=== PATIENT | male | born 1930 | race Caucasian/White ===

== ENCOUNTER 2021-08-05 16:06 | Inpatient (IN) | payer MEDICARE ==
[2021-08-05] MEDS ORDERED: LIDOCAINE-PRILOCAINE 2.5-2.5% CREAM 5 GM TUBE TOPICAL ONE (18:59)
[2021-08-05] MEDS ORDERED: VANCOMYCIN IV PER PHARMACY 1 EACH MISC MISCELLANE PRN (19:13)
[2021-08-05] MEDS ORDERED: LEVOFLOXACIN 500MG-D5W PMX 500 MG in DEXTROSE/WATER 1 100ML.BAG IVPB STA (19:14)
[2021-08-05] MEDS ORDERED: NALOXONE 0.4 MG/ML 1 ML VIAL IV PRN (19:24)
--- NOTE | 2021-08-05 19:24 | ED ---
General Adult HPI - General Chief complaint: Urogenital Stated complaint: Poss infection in colon-sent by PCP Time Seen by Provider: 08/05/21 18:26 Source: patient, RN notes reviewed, old records reviewed Mode of arrival: wheelchair Limitations: no limitations - History of Present Illness Initial comments: 89-year-old male presenting for evaluation patient's had been sent in by his urologist for positive blood culture and positive urine culture. Patient is currently being treated for prostatitis. He's been on Cipro but has not been improving. He's had poor appetite. He's had weight loss increased generalized weakness. He does not report a fever. He had blood cultures obtained at outside hospital which were positive for gram positive cocci and urine culture which was positive for E. coli. The sensitivities were not available. - Related Data Allergies Allergy/AdvReac Type Severity Reaction Status Date / Time Sulfa (Sulfonamide AdvReac Rash/Hives Verified 08/05/21 16:31 Antibiotics) Review of Systems ROS Statement: Those systems with pertinent positive or pertinent negative responses have been documented in the HPI. ROS Other: All systems not noted in ROS Statement are negative. Past Medical History Past Medical History: Diabetes Mellitus, Hyperlipidemia, Hypertension History of Any Multi-Drug Resistant Organisms: None Reported Past Psychological History: No Psychological Hx Reported Smoking Status: Never smoker Past Alcohol Use History: None Reported Past Drug Use History: None Reported General Exam Limitations: no limitations General appearance: alert, in no apparent distress Head exam: Present: atraumatic, normocephalic Eye exam: Present: normal appearance, PERRL ENT exam: Present: normal exam Neck exam: Present: normal inspection. Absent: meningismus Respiratory exam: Present: normal lung sounds bilaterally. Absent: respiratory distress, wheezes Cardiovascular Exam: Present: regular rate, normal rhythm GI/Abdominal exam: Present: soft, distended. Absent: tenderness Extremities exam: Present: normal inspection, normal capillary refill Neurological exam: Present: alert, oriented X3, CN II-XII intact. Absent: motor sensory deficit Psychiatric exam: Present: normal affect, normal mood Skin exam: Present: warm, dry, intact. Absent: cyanosis, diaphoretic Course Vital Signs 08/05/21 16:31 Temperature 98.9 F Pulse Rate 76 Respiratory 16 Rate Blood Pressure 108/64 O2 Sat by Pulse 96 Oximetry Medical Decision Making - Medical Decision Making 82-year-old male with positive blood culture, positive urine culture, failing outpatient treatment for UTI and prostatitis. Cultures and urine culture will be repeated. Patient will be started on vancomycin to cover the gram-positive organisms in his blood and Levaquin for treatment of prostatitis and E. coli in the urine. Laboratory studies will be obtained these results are pending. The patient will be admitted to internal medicine at the request of his urologist Dr. Tyson. Disposition Clinical Impression: Prostatitis, Positive blood culture Disposition: ADMITTED IP TO THIS HOSP Condition: Stable Is patient prescribed a controlled substance at d/c from ED?: No Referrals: Nonstaff,Physician [Primary Care Provider] - 1-2 days Time of Disposition: 19:24
[2021-08-05 20:03] LABS: Basophils % (A) 0 %; Eosinophils # (A) 0.1 k/uL (0-0.7); Eosinophils % (A) 1 %; HCT 47.1 % (39.0-53.0); HGB 15.1 gm/dL (13.0-17.5); Lymphocytes % (A) 9 %; MCH 31.1 pg (25.0-35.0); MCV 97.3 fL (80.0-100.0); Mean Platelet Volume 7.1; Monocytes # (A) 0.6 k/uL (0-1.0); Monocytes % (A) 5 %; Neutrophils # (A) 10.1 k/uL (1.3-7.7); Neutrophils % (A) 83 %; Platelet Count 240 k/uL (150-450); RBC 4.84 m/uL (4.30-5.90); RDW 13.6 % (11.5-15.5); WBC 12.1 k/uL (3.8-10.6)
[2021-08-05 20:14] LABS: Albumin 3.4 g/dL (3.5-5.0); Calcium 8.9 mg/dL (8.4-10.2); Potassium 4.2 mmol/L (3.5-5.1); Total Bilirubin 0.6 mg/dL (0.2-1.3); Total Protein 6.4 g/dL (6.3-8.2)
[2021-08-05] MEDS: SODIUM CHLORIDE 0.9% 1,000 ML IV SCH (20:29)
[2021-08-05 20:39] LABS: Appearance,Urine Turbid (Clear); Bacteria,Urine Many /hpf; Bilirubin,Urine Negative (Negative); Blood,Urine Small (Negative); Color,Urine Yellow; Glucose,Urine (UA) Trace (Negative); Ketones,Urine Negative (Negative); Leukocyte Esterase,Urine Large (Negative); Nitrite,Urine Positive (Negative); PH, Urine 5.5 (5.0-8.0); Protein,Urine 1+ (Negative); RBC,Urine 18 /hpf (0-5); Specific Gravity,Urine 1.018 (1.001-1.035); Squamous Epithelial Cell,Urine 3 /hpf (0-4); Urobilinogen,Urine <2.0 mg/dL (<2.0); WBC,Urine >182 /hpf (0-5)
[2021-08-05] MEDS ORDERED: VANCOMYCIN 2,000 MG in SODIUM CHLORIDE 0.9% 500 ML 500 ML IVPB ONE ×2 (21:00→23:00)
[2021-08-05] MEDS ORDERED: LEVOFLOXACIN 500MG-D5W PMX 500 MG in DEXTROSE/WATER 1 100ML.BAG IVPB ONE (23:00)
[2021-08-06] MEDS ORDERED: MELATONIN 5 MG TABLET PO ONE (00:45)
[2021-08-06] MEDS: ACETAMINOPHEN TAB 325 MG TAB PO PRN ×3 (00:52→22:38)
--- NOTE | 2021-08-06 03:27 | P.HPIM ---
History of Present Illness H&P Date: 08/05/21 Patient is a 89-year-old male with a PMH of type II DM, hyper lipidemia, hypertension, BPH, who was sent to the emergency room by his urologist (Dr. Kaden Tyson) for positive blood and urine cultures. The patient reports that he is currently undergoing treatment for prostatitis for the past several days, and has been receiving ciprofloxacin. He reports however that his symptoms have not improved despite antibiotics, and he was informed that the blood cultures he had performed from another facility were positive. Reportedly, the blood cultures were positive for gram-positive cocci with urine culture positive for E. coli. No sensitivities were available for review. The patient reports on going dysuria with urinary frequency and urgency and urine significantly darker than usual. He also reports subjective chills. Denied chest discomfort, nausea, vomiting, abdominal pain. Laboratory evaluation in the emergency room revealed dullness count of 12.1, UN 47, creatinine 2.34 (no baseline available for comparison), and grossly abnormal UA. Review of systems: Pertinent positives and negatives as discussed in HPI, a complete review of systems was performed and all other systems are negative. Physical examination: General: non toxic, no distress, appears at stated age, elderly obese Derm: no unusual rashes/lesions no unusual ecchymoses, warm, dry Head: atraumatic, normocephalic, symmetric Eyes: EOMI, no lid lag, anicteric sclera, pupils equal round reactive to light ENT: Nose and ears atraumatic, no thrush, no pharyngeal erythema Neck: No thyromegaly, no cervical lymphadenopathy, trachea midline, supple Mouth: no lip lesion, mucus membranes moist Cardiovascular: S1S2 reg, no murmur, positive posterior tibial pulse bilateral, no edema, capillary refill less than 2 seconds Lungs: CTA bilateral, no rhonchi, no rales , no accessory muscle use Abdominal: soft, obese, nontender to palpation, no guarding, no appreciable organomegaly, normal bowel sounds Ext: no gross muscle atrophy, muscle strength 5 out of 5 in all 4 extremities grossly, no contractures, Neuro: CN II-XI grossly intact, light touch intact all 4 extremities, finger to nose within normal limits, Psych: Alert, oriented, appropriate affect Assessment/plan Prostatitis, failed outpatient treatment -Patient received Levaquin in the emergency room. The patient however has not responded to ciprofloxacin as an outpatient -Start ceftriaxone -Urology consulted Gram-positive cocci in blood cultures -Continue with empiric vancomycin for now Kidney injury, acute versus chronic -Monitor for now Chronic conditions: Type II DM, hyperlipidemia, hypertension -Insulin sliding scale with blood glucose monitoring DVT prophylaxis -Heparin subq The patient is admitted with an anticipated greater than 2 midnight stay for evaluation of prostatitis CODE STATUS: Full Code Discussed with: Patient Anticipated discharge date: 08/[address]: Home Past Medical History Past Medical History: Diabetes Mellitus, Hyperlipidemia, Hypertension Additional Past Medical History / Comment(s): Type 2 diabetes History of Any Multi-Drug Resistant Organisms: None Reported Additional Past Surgical History / Comment(s): "20 years ago 20 inches of colon removed due to polyps" Past Psychological History: No Psychological Hx Reported Smoking Status: Never smoker Past Alcohol Use History: None Reported Past Drug Use History: None Reported - Past Family History Father Additional Family Medical History / Comment(s): from "heart problem" Medications and Allergies Home Medications Medication Instructions Recorded Confirmed Type Ciprofloxacin HCl 500 mg PO BID 08/05/21 08/05/21 History Furosemide [Lasix] 40 mg PO DAILY 08/05/21 08/05/21 History Ibuprofen 600 mg PO Q6H PRN 08/05/21 08/05/21 History Losartan [Cozaar] 25 mg PO DAILY 08/05/21 08/05/21 History Metoprolol Succinate (ER) [Toprol 50 mg PO DAILY 08/05/21 08/05/21 History Xl] Simvastatin [Zocor] 20 mg PO DAILY 08/05/21 08/05/21 History glipiZIDE [Glucotrol] 10 mg PO BID 08/05/21 08/05/21 History metFORMIN HCL [Glucophage] 500 mg PO BID 08/05/21 08/05/21 History Allergies Allergy/AdvReac Type Severity Reaction Status Date / Time Sulfa (Sulfonamide AdvReac Rash/Hives Verified 08/05/21 20:10 Antibiotics) Physical Exam Vitals: Vital Signs Temp Pulse Pulse Resp BP BP Pulse Ox 08/05/21 21:47 97.8 F 75 18 149/77 97 08/05/21 20:36 97.6 F 74 16 115/74 97 08/05/21 16:31 98.9 F 76 16 108/64 96 Intake and Output 08/05/21 08/05/21 08/06/21 14:59 22:59 06:59 Other: Voiding Method Toilet Weight 104.78 kg Results CBC & Chem 7: 08/05/21 19:45 08/05/21 19:45 Labs: Abnormal Lab Results - Last 24 Hours (Table) 08/05/21 08/05/21 08/05/21 Range/Units 19:45 19:45 20:19 WBC 12.1 H (3.8-10.6) k/uL Neutrophils # 10.1 H (1.3-7.7) k/uL Sodium 136 L (137-145) mmol/L BUN 47 H (9-20) mg/dL Creatinine 2.34 H (0.66-1.25) mg/dL Glucose 154 H (74-99) mg/dL Albumin 3.4 L (3.5-5.0) g/dL Urine Protein 1+ H (Negative) Urine Glucose (UA) Trace H (Negative) Urine Blood Small H (Negative) Ur Leukocyte Esterase Large H (Negative) Urine RBC 18 H (0-5) /hpf Urine WBC >182 H (0-5) /hpf Urine WBC Clumps Many H (None) /hpf Urine Bacteria Many H (None) /hpf Thrombosis Risk Factor Assmnt - Choose All That Apply Each Factor Represents 1 point: Obesity (BMI >25) Each Risk Factor Represents 3 Points: Age 75 years or older Thrombosis Risk Factor Assessment Total Risk Factor Score: 4 Thrombosis Risk Factor Assessment Level: Moderate Risk
[2021-08-06] MEDS: SODIUM CHLORIDE 0.9% 1,000 ML IV SCH ×3 (04:38→16:58)
[2021-08-06 07:16] LABS: Glucose,Whole Blood 202 mg/dL (75-99)
[2021-08-06 08:03] LABS: African American GFR (CKD) 34 (>60 ml/min/1.73 sqM); Anion Gap 9 mmol/L; Blood Urea Nitrogen 44 mg/dL (9-20); Calcium 8.5 mg/dL (8.4-10.2); Carbon Dioxide 23 mmol/L (22-30); Chloride 104 mmol/L (98-107); Glucose 235 mg/dL (74-99); Non-African American GFR(CKD) 30 (>60 ml/min/1.73 sqM); Potassium 4.7 mmol/L (3.5-5.1); Sodium 136 mmol/L (137-145)
[2021-08-06] MEDS: METOPROLOL SUCCINATE (ER) 50 MG TAB.ER.24H PO SCH (08:06)
[2021-08-06] MEDS: HEPARIN SODIUM,PORCINE/PF 5,000 UNIT/0.5 ML SYRINGE SQ SCH ×3 (08:06→22:36)
[2021-08-06] MEDS: INSULIN ASPART (NovoLOG) 100 UNIT/ML VIAL SQ SCH ×5 (08:06→20:41)
[2021-08-06] MEDS: ATORVASTATIN 10 MG TAB PO SCH (08:06)
[2021-08-06] MEDS: FUROSEMIDE 40 MG TAB PO SCH (08:06)
--- NOTE | 2021-08-06 08:07 | P.GSCN ---
History of Present Illness Consult date: 08/06/21 Reason for Consult: UTI History of present illness: Patient is an 89-year-old male with multiple comorbidities. He is patient of Dr Tyson He was placed on Cipro for prostatitis, But his gram-positive cocci with urine culture positive for E. coli. He reports no improvement of his symptoms with PO antibiotics. He indicated that he was having dysuria, frequency and suprapubic pain. denies any fevers or chills or flank pain.he was admitted to the hospital overnight, and was started on vancomycin and Levaquin. Indicated improvement following one dose of antibiotics. he is refusing IV fluids and antibiotics, indicates its causing severe warm sensation in hi body. Review of Systems - Constitutional Denies fever, Denies weight loss - EENT Ears, nose, mouth and throat: Denies dysphagia - Cardiovascular Denies chest pain, Denies shortness of breath - Respiratory Denies cough, Denies 7 - Genitourinary Reports dysuria, Reports urinary frequency, Denies flank pain - Integumentary Denies rash, Denies unusual bruising - Neurological Denies headaches, Denies syncope Past Medical History Past Medical History: Diabetes Mellitus, Hyperlipidemia, Hypertension Additional Past Medical History / Comment(s): Type 2 diabetes History of Any Multi-Drug Resistant Organisms: None Reported Additional Past Surgical History / Comment(s): "20 years ago 20 inches of colon removed due to polyps" Past Psychological History: No Psychological Hx Reported Smoking Status: Never smoker Past Alcohol Use History: None Reported Past Drug Use History: None Reported - Past Family History Father Additional Family Medical History / Comment(s): from "heart problem" Medications and Allergies Home Medications Medication Instructions Recorded Confirmed Type Ciprofloxacin HCl 500 mg PO BID 08/05/21 08/05/21 History Furosemide [Lasix] 40 mg PO DAILY 08/05/21 08/05/21 History Ibuprofen 600 mg PO Q6H PRN 08/05/21 08/05/21 History Losartan [Cozaar] 25 mg PO DAILY 08/05/21 08/05/21 History Metoprolol Succinate (ER) [Toprol 50 mg PO DAILY 08/05/21 08/05/21 History Xl] Simvastatin [Zocor] 20 mg PO DAILY 08/05/21 08/05/21 History glipiZIDE [Glucotrol] 10 mg PO BID 08/05/21 08/05/21 History metFORMIN HCL [Glucophage] 500 mg PO BID 08/05/21 08/05/21 History Allergies Allergy/AdvReac Type Severity Reaction Status Date / Time Sulfa (Sulfonamide AdvReac Rash/Hives Verified 08/05/21 20:10 Antibiotics) Surgical - Exam Vital Signs Temp Pulse Resp BP Pulse Ox 98.9 F 76 16 108/64 96 08/05/21 16:31 08/05/21 16:31 08/05/21 16:31 08/05/21 16:31 08/05/21 16:31 - General no distress, no pain - Eyes normal ocular movement, no pale - ENT normal nares, normal mucosa - Respiratory normal expansion, normal respiratory effort - Abdomen Abdomen: soft, non tender, no distended - Psychiatric oriented to time, oriented to person, oriented to place Results - Labs 08/05/21 19:45 08/05/21 19:45 Abnormal Lab Results - Last 24 Hours (Table) 08/05/21 08/05/21 08/05/21 Range/Units 19:45 19:45 20:19 WBC 12.1 H (3.8-10.6) k/uL Neutrophils # 10.1 H (1.3-7.7) k/uL Sodium 136 L (137-145) mmol/L BUN 47 H (9-20) mg/dL Creatinine 2.34 H (0.66-1.25) mg/dL Glucose 154 H (74-99) mg/dL POC Glucose (mg/dL) (75-99) mg/dL Albumin 3.4 L (3.5-5.0) g/dL Urine Protein 1+ H (Negative) Urine Glucose (UA) Trace H (Negative) Urine Blood Small H (Negative) Ur Leukocyte Esterase Large H (Negative) Urine RBC 18 H (0-5) /hpf Urine WBC >182 H (0-5) /hpf Urine WBC Clumps Many H (None) /hpf Urine Bacteria Many H (None) /hpf 08/06/21 Range/Units 07:15 WBC (3.8-10.6) k/uL Neutrophils # (1.3-7.7) k/uL Sodium (137-145) mmol/L BUN (9-20) mg/dL Creatinine (0.66-1.25) mg/dL Glucose (74-99) mg/dL POC Glucose (mg/dL) 202 H (75-99) mg/dL Albumin (3.5-5.0) g/dL Urine Protein (Negative) Urine Glucose (UA) (Negative) Urine Blood (Negative) Ur Leukocyte Esterase (Negative) Urine RBC (0-5) /hpf Urine WBC (0-5) /hpf Urine WBC Clumps (None) /hpf Urine Bacteria (None) /hpf Diabetes panel 08/05/21 Range/Units 19:45 Sodium 136 L (137-145) mmol/L Potassium 4.2 (3.5-5.1) mmol/L Chloride 101 (98-107) mmol/L Carbon Dioxide 25 (22-30) mmol/L BUN 47 H (9-20) mg/dL Creatinine 2.34 H (0.66-1.25) mg/dL Glucose 154 H (74-99) mg/dL Calcium 8.9 (8.4-10.2) mg/dL AST 24 (17-59) U/L ALT 16 (4-49) U/L Alkaline Phosphatase 83 (38-126) U/L Total Protein 6.4 (6.3-8.2) g/dL Albumin 3.4 L (3.5-5.0) g/dL Calcium panel 08/05/21 Range/Units 19:45 Calcium 8.9 (8.4-10.2) mg/dL Albumin 3.4 L (3.5-5.0) g/dL Pituitary panel 08/05/21 Range/Units 19:45 Sodium 136 L (137-145) mmol/L Potassium 4.2 (3.5-5.1) mmol/L Chloride 101 (98-107) mmol/L Carbon Dioxide 25 (22-30) mmol/L BUN 47 H (9-20) mg/dL Creatinine 2.34 H (0.66-1.25) mg/dL Glucose 154 H (74-99) mg/dL Calcium 8.9 (8.4-10.2) mg/dL Adrenal panel 08/05/21 Range/Units 19:45 Sodium 136 L (137-145) mmol/L Potassium 4.2 (3.5-5.1) mmol/L Chloride 101 (98-107) mmol/L Carbon Dioxide 25 (22-30) mmol/L BUN 47 H (9-20) mg/dL Creatinine 2.34 H (0.66-1.25) mg/dL Glucose 154 H (74-99) mg/dL Calcium 8.9 (8.4-10.2) mg/dL Total Bilirubin 0.6 (0.2-1.3) mg/dL AST 24 (17-59) U/L ALT 16 (4-49) U/L Alkaline Phosphatase 83 (38-126) U/L Total Protein 6.4 (6.3-8.2) g/dL Albumin 3.4 L (3.5-5.0) g/dL Assessment and Plan Assessment: this is an 89-year-old male with prostatitis and bacteremia failed outpatient by mouth antibiotics. He has been having persistent symptoms with Cipro. He is admitted to the hospital given to his bacteremia and failure of by mouth antibiotics as an outpatient. He was started on Levaquin and vancomycin in the ER, has noticed improvement this morning. He is refusing any further IV medications, including antibiotics for a prolonged discussion with him given that he failed by mouth antibiotics need to continue IV medications until cultures are finalized. Continued to refuse, indicated he was not comfortable with a feeling he was having with the medications. Discussed with him potential of progression of his infection, and progression to sepsis and even loss of life with a improperly treatment of UTI. At this point he indicated he continues to refuse but we'll consider later today. -Consult For ID given his bactremia -F/U on Urine and blood culture -Continue IV abx when patient is agreeable
[2021-08-06 11:43] LABS: Glucose,Whole Blood 262 mg/dL (75-99)
--- NOTE | 2021-08-06 13:12 | P.PN ---
Subjective Progress Note Date: 08/06/21 Principal diagnosis: Pelvic discomfort Patient was seen and examined. No acute events overnight. Patient describes pelvic discomfort which he relates to prostatitis. Hasn't had a bowel movement in a few days. No dysuria. No nausea or vomiting. No fever or chills. Objective - Vital Signs Vital signs: Vital Signs Temp 97.6 F 08/06/21 07:36 Pulse 83 08/06/21 07:36 Resp 17 08/06/21 07:36 BP 95/57 08/06/21 07:36 Pulse Ox 95 08/06/21 07:36 Intake & Output 08/05/21 08/06/21 08/06/21 18:59 06:59 18:59 Intake Total 900 Output Total 500 Balance 400 Weight 104.78 kg 104.78 kg Intake: Intake, IV Titration 600 Amount Levofloxacin 500Mg-D5w 100 Pmx 500 mg In Dextrose/ Water 1 100ml.bag @ 100 mls/hr IVPB ONCE ONE Rx#: [id number] Vancomycin 2,000 mg In 500 Sodium Chloride 0.9% 500 ml 500 ml @ 167 mls/hr IVPB ONCE ONE Rx#: [id number] Oral 300 Output: Urine 500 Other: Voiding Method Urinal Urinal # Voids 6 - Exam General: [non toxic], [no distress], [appears at stated age] Derm: [warm], [dry] Head: [atraumatic], [normocephalic], [symmetric] Eyes: [EOMI], [no lid lag], [anicteric sclera] Mouth: [no lip lesion], [mucus membranes moist] Cardiovascular: [S1S2 reg], [no murmur] Lungs: [CTA bilateral], [no rhonchi, no rales] , [no accessory muscle use] Abdominal: [soft], [ nontender to palpation], [no guarding], [no appreciable organomegaly] Ext: [no gross muscle atrophy], [no edema], [no contractures] Neuro: [no focal neuro deficits] Psych: [Alert], [oriented], [appropriate affect] - Labs CBC & Chem 7: 08/05/21 19:45 08/06/21 07:27 Labs: Abnormal Lab Results - Last 24 Hours (Table) 08/05/21 08/05/21 08/05/21 Range/Units 19:45 19:45 20:19 WBC 12.1 H (3.8-10.6) k/uL Neutrophils # 10.1 H (1.3-7.7) k/uL Sodium 136 L (137-145) mmol/L BUN 47 H (9-20) mg/dL Creatinine 2.34 H (0.66-1.25) mg/dL Glucose 154 H (74-99) mg/dL POC Glucose (mg/dL) (75-99) mg/dL Albumin 3.4 L (3.5-5.0) g/dL Urine Protein 1+ H (Negative) Urine Glucose (UA) Trace H (Negative) Urine Blood Small H (Negative) Ur Leukocyte Esterase Large H (Negative) Urine RBC 18 H (0-5) /hpf Urine WBC >182 H (0-5) /hpf Urine WBC Clumps Many H (None) /hpf Urine Bacteria Many H (None) /hpf 08/06/21 08/06/21 08/06/21 Range/Units 07:15 07:27 11:42 WBC (3.8-10.6) k/uL Neutrophils # (1.3-7.7) k/uL Sodium 136 L (137-145) mmol/L BUN 44 H (9-20) mg/dL Creatinine 1.96 H (0.66-1.25) mg/dL Glucose 235 H (74-99) mg/dL POC Glucose (mg/dL) 202 H 262 H (75-99) mg/dL Albumin (3.5-5.0) g/dL Urine Protein (Negative) Urine Glucose (UA) (Negative) Urine Blood (Negative) Ur Leukocyte Esterase (Negative) Urine RBC (0-5) /hpf Urine WBC (0-5) /hpf Urine WBC Clumps (None) /hpf Urine Bacteria (None) /hpf Assessment and Plan Assessment: Prostatitis, failed outpatient treatment Leukocytosis -Patient received Levaquin in the emergency room. The patient however has not responded to ciprofloxacin as an outpatient -UA with reflex to culture ordered -Start ceftriaxone -Urology consulted Gram-positive cocci in blood cultures -Continue with empiric vancomycin for now -Telemetry monitoring -ID consulted -Repeat blood culture Kidney injury, acute versus chronic -Monitor for now Diabetes mellitus with hyperglycemia -Medium dose insulin sliding scale along with accuchecks QID and hypoglycemic precautions. Chronic conditions: Hyperlipidemia, hypertension DVT prophylaxis -Heparin subq The patient is admitted with an anticipated greater than 2 midnight stay for evaluation of prostatitis CODE STATUS: Full Code Discussed with: Patient Anticipated discharge date: 08/[address]: Home
--- NOTE | 2021-08-06 13:48 | XR ---
EXAMINATION TYPE: XR KUB portable DATE OF EXAM: 08/06/2021 COMPARISON: NONE HISTORY: Pain TECHNIQUE: 2 views abdominal series FINDINGS: Portions of the right abdomen are not included in the [id number]. The osseous structures are intact. The bowel gas pattern is nonspecific. Hypertrophic and degenerati ve changes of the spine. 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 IMPRESSION: 1. Limited exam as portions of the right abdomen are not included in the [id number]. Bowel gas pat tern nonspecific with no obstruction.
[2021-08-06 14:07] LABS: Appearance,Urine Cloudy (Clear); Bacteria,Urine Rare /hpf; Bilirubin,Urine Negative (Negative); Blood,Urine Small (Negative); Color,Urine Light Yellow; Glucose,Urine (UA) Trace (Negative); Ketones,Urine Negative (Negative); Leukocyte Esterase,Urine Large (Negative); Mucus,Urine Rare /hpf; Nitrite,Urine Negative (Negative); Protein,Urine Trace (Negative); RBC,Urine 2 /hpf (0-5); Squamous Epithelial Cell,Urine <1 /hpf (0-4); Urobilinogen,Urine <2.0 mg/dL (<2.0); WBC,Urine >182 /hpf (0-5)
[2021-08-06 16:54] LABS: Glucose,Whole Blood 228 mg/dL (75-99)
[2021-08-06] MEDS ORDERED: VANCOMYCIN 2,000 MG in SODIUM CHLORIDE 0.9% 500 ML 500 ML IVPB ONE (18:00)
[2021-08-06 20:40] LABS: Glucose,Whole Blood 153 mg/dL (75-99)
[2021-08-07 05:43] VITALS: RESP 18
[2021-08-07 06:26] LABS: African American GFR (CKD) 45 (>60 ml/min/1.73 sqM); Anion Gap 9 mmol/L; Blood Urea Nitrogen 37 mg/dL (9-20); Calcium 8.2 mg/dL (8.4-10.2); Carbon Dioxide 22 mmol/L (22-30); Chloride 104 mmol/L (98-107); Glucose 205 mg/dL (74-99); Non-African American GFR(CKD) 39 (>60 ml/min/1.73 sqM); Potassium 4.2 mmol/L (3.5-5.1); Sodium 135 mmol/L (137-145)
[2021-08-07 06:54] LABS: Glucose,Whole Blood 202 mg/dL (75-99)
--- NOTE | 2021-08-07 07:14 | P.CONS ---
History of Present Illness - Reason for Consult Consult date: 08/06/21 UTI Requesting physician: Júnior Irwin - Chief Complaint weakness x few days - History of Present Illness Patient is 89-year-old male has been sent to the ER by his urologist with concern for positive blood culture and positive urine culture in this patient apparently has been treated for prostatitis in the outpatient setting with oral Cipro without any improvement patient is complaining of increasing weight loss with generalized weakness and did have a poor appetite some abdominal discomfort. Denies having any fever, the patient denies having any chest pain no shortness of breath or cough no nausea no vomiting no abdominal pain diarrhea denies any burning or frequency of urine or any pelvic pain on presentation to the hospital the patient was afebrile patient did have white count of 12.1 with a left shift patient did have elevated BUN/creatinine urine has been positive blood cultures obtained here pending urine cultures pending patient was started on Rocephin and vancomycin infectious disease was consulted for further management of antibiotic therapy Review of Systems Positive point has been mentioned in the HPI rest of the systems are negative Past Medical History Past Medical History: Diabetes Mellitus, Hyperlipidemia, Hypertension Additional Past Medical History / Comment(s): Type 2 diabetes History of Any Multi-Drug Resistant Organisms: None Reported Additional Past Surgical History / Comment(s): "20 years ago 20 inches of colon removed due to polyps" Past Psychological History: No Psychological Hx Reported Smoking Status: Never smoker Past Alcohol Use History: None Reported Past Drug Use History: None Reported - Past Family History Father Additional Family Medical History / Comment(s): from "heart problem" Medications and Allergies Home Medications Medication Instructions Recorded Confirmed Type Furosemide [Lasix] 40 mg PO DAILY 08/05/21 08/05/21 History Losartan [Cozaar] 25 mg PO DAILY 08/05/21 08/05/21 History Metoprolol Succinate (ER) [Toprol 50 mg PO DAILY 08/05/21 08/05/21 History XL] Simvastatin [Zocor] 20 mg PO DAILY 08/05/21 08/05/21 History glipiZIDE [Glucotrol] 10 mg PO BID 08/05/21 08/05/21 History metFORMIN HCL [Glucophage] 500 mg PO BID 08/05/21 08/05/21 History Acetaminophen Tab [Tylenol] 650 mg PO Q6HR PRN tab 08/08/21 Rx Cefuroxime Axetil [Ceftin] 500 mg PO BID 14 Days #28 tab 08/08/21 Rx Allergies Allergy/AdvReac Type Severity Reaction Status Date / Time Sulfa (Sulfonamide AdvReac Rash/Hives Verified 08/05/21 20:10 Antibiotics) Physical Exam Vitals: Vital Signs Temp Pulse Pulse Resp BP BP Pulse Ox 08/06/21 07:36 97.6 F 83 17 95/57 95 08/06/21 03:06 18 08/06/21 02:00 97.8 F 83 17 117/64 93 L 08/05/21 21:47 97.8 F 75 18 149/77 97 08/05/21 20:36 97.6 F 74 16 115/74 97 08/05/21 16:31 98.9 F 76 16 108/64 96 Intake and Output 08/05/21 08/06/21 08/06/21 22:59 06:59 14:59 Intake Total 900 Output Total 500 Balance 400 Intake: Intake, IV Titration 600 Amount Levofloxacin 500Mg-D5w 100 Pmx 500 mg In Dextrose/ Water 1 100ml.bag @ 100 mls/hr IVPB ONCE ONE Rx#: [id number] Vancomycin 2,000 mg In 500 Sodium Chloride 0.9% 500 ml 500 ml @ 167 mls/hr IVPB ONCE ONE Rx#: [id number] Oral 300 Output: Urine 500 Other: Voiding Method Toilet Urinal Urinal # Voids 6 Weight 104.78 kg GENERAL DESCRIPTION: An elderly male lying in bed, no distress. No tachypnea or accessory muscle of respiration use. HEENT: Shows Pallor , no scleral icterus. Oral mucous membrane is dry. No pharyngeal erythema or thrush NECK: Trachea central, no thyromegaly. LUNGS: Unlabored breathing. Clear to auscultation anteriorly. No wheeze or crackle. HEART: S1, S2, regular rate and rhythm. No loud murmur ABDOMEN: Soft, mild distention but no tenderness , guarding or rigidity, no organomegaly EXTREMITIES: No edema of feet. SKIN: No rash, no masses palpable. NEUROLOGICAL: The patient is awake, alert, oriented x3, mood and affect normal. Results CBC & Chem 7: 08/05/21 19:45 08/07/21 04:28 Labs: Abnormal Lab Results - Last 24 Hours (Table) 08/05/21 08/05/21 08/05/21 Range/Units 19:45 19:45 20:19 WBC 12.1 H (3.8-10.6) k/uL Neutrophils # 10.1 H (1.3-7.7) k/uL Sodium 136 L (137-145) mmol/L BUN 47 H (9-20) mg/dL Creatinine 2.34 H (0.66-1.25) mg/dL Glucose 154 H (74-99) mg/dL POC Glucose (mg/dL) (75-99) mg/dL Albumin 3.4 L (3.5-5.0) g/dL Urine Protein 1+ H (Negative) Urine Glucose (UA) Trace H (Negative) Urine Blood Small H (Negative) Ur Leukocyte Esterase Large H (Negative) Urine RBC 18 H (0-5) /hpf Urine WBC >182 H (0-5) /hpf Urine WBC Clumps Many H (None) /hpf Urine Bacteria Many H (None) /hpf 08/06/21 08/06/21 Range/Units 07:15 07:27 WBC (3.8-10.6) k/uL Neutrophils # (1.3-7.7) k/uL Sodium 136 L (137-145) mmol/L BUN 44 H (9-20) mg/dL Creatinine 1.96 H (0.66-1.25) mg/dL Glucose 235 H (74-99) mg/dL POC Glucose (mg/dL) 202 H (75-99) mg/dL Albumin (3.5-5.0) g/dL Urine Protein (Negative) Urine Glucose (UA) (Negative) Urine Blood (Negative) Ur Leukocyte Esterase (Negative) Urine RBC (0-5) /hpf Urine WBC (0-5) /hpf Urine WBC Clumps (None) /hpf Urine Bacteria (None) /hpf Assessment and Plan (1) Positive blood culture Status: Acute Code(s): R78.81 - BACTEREMIA SNOMED Code(s): 797201538 (2) Prostatitis Status: Acute Code(s): N41.9 - INFLAMMATORY DISEASE OF PROSTATE, UNSPECIFIED SNOMED Code(s): 7516341 Plan: 1patient presented to hospital with weakness this patient currently undergoing treatment in the outpatient setting with Cipro for prostatitis and apparently did have positive blood as well as urine culture in the outpatient setting patient is currently not running any fever white count is normal does not look toxic clinically doubt true bacteremia positive blood culture could be skin contaminant. 2patient with the elevated creatinine and high risk of nephrotoxicity from vancomycin. 3we will try to obtain final on the blood culture that was done in the outside facility and will continue to follow blood and urine culture done at this fac ility. 4Rocephin 2 g daily to continue We will follow on clinical condition and cultures to further adjust medication if needed Thank you for this consultation will follow this patient along with you Time with Patient: Greater than 30
[2021-08-07] MEDS: SODIUM CHLORIDE 0.9% 1,000 ML IV SCH ×3 (07:39→10:28)
[2021-08-07] MEDS: HEPARIN SODIUM,PORCINE/PF 5,000 UNIT/0.5 ML SYRINGE SQ SCH ×2 (08:06→15:31)
[2021-08-07] MEDS: INSULIN ASPART (NovoLOG) 100 UNIT/ML VIAL SQ SCH ×4 (08:06→21:05)
[2021-08-07] MEDS: ATORVASTATIN 10 MG TAB PO SCH (08:07)
[2021-08-07] MEDS: METOPROLOL SUCCINATE (ER) 50 MG TAB.ER.24H PO SCH (08:07)
[2021-08-07] MEDS: FUROSEMIDE 40 MG TAB PO SCH (08:07)
[2021-08-07 11:39] LABS: Glucose,Whole Blood 258 mg/dL (75-99)
--- NOTE | 2021-08-07 11:41 | P.PN ---
Subjective Progress Note Date: 08/07/21 Principal diagnosis: Pelvic discomfort Patient was seen and examined. No acute events overnight. Patient reports improvement in his pelvic discomfort which he relates to prostatitis. No dysuria. No nausea or vomiting. No fever or chills. Objective - Vital Signs Vital signs: Vital Signs Temp 97.5 F L 08/07/21 08:25 Pulse 87 08/07/21 08:25 Resp 18 08/07/21 08:25 BP 138/83 08/07/21 08:25 Pulse Ox 97 08/07/21 08:25 Intake & Output 08/06/21 08/07/21 08/07/21 18:59 06:59 18:59 Intake Total 900 Output Total 1200 300 200 Balance -300 -300 -200 Intake: Intake, IV Titration 600 Amount Levofloxacin 500Mg-D5w 100 Pmx 500 mg In Dextrose/ Water 1 100ml.bag @ 100 mls/hr IVPB ONCE ONE Rx#: [id number] Vancomycin 2,000 mg In 500 Sodium Chloride 0.9% 500 ml 500 ml @ 167 mls/hr IVPB ONCE ONE Rx#: [id number] Oral 300 Output: Urine 1200 300 200 Other: Voiding Method Urinal Urinal # Voids 6 # Bowel Movements 0 - Exam General: [non toxic], [no distress], [appears at stated age] Derm: [warm], [dry] Head: [atraumatic], [normocephalic], [symmetric] Eyes: [EOMI], [no lid lag], [anicteric sclera] Mouth: [no lip lesion], [mucus membranes moist] Cardiovascular: [S1S2 reg], [no murmur] Lungs: [CTA bilateral], [no rhonchi, no rales] , [no accessory muscle use] Abdominal: [soft], [ nontender to palpation], [no guarding], [no appreciable organomegaly] Ext: [no gross muscle atrophy], [no edema], [no contractures] Neuro: [no focal neuro deficits] Psych: [Alert], [oriented], [appropriate affect] - Labs CBC & Chem 7: 08/05/21 19:45 08/07/21 04:28 Labs: Abnormal Lab Results - Last 24 Hours (Table) 08/06/21 08/06/21 08/06/21 Range/Units 11:42 13:37 16:53 Sodium (137-145) mmol/L BUN (9-20) mg/dL Creatinine (0.66-1.25) mg/dL Glucose (74-99) mg/dL POC Glucose (mg/dL) 262 H 228 H (75-99) mg/dL Calcium (8.4-10.2) mg/dL Urine Protein Trace H (Negative) Urine Glucose (UA) Trace H (Negative) Urine Blood Small H (Negative) Ur Leukocyte Esterase Large H (Negative) Urine WBC >182 H (0-5) /hpf Urine WBC Clumps Many H (None) /hpf Urine Bacteria Rare H (None) /hpf Urine Mucus Rare H (None) /hpf 08/06/21 08/07/21 08/07/21 Range/Units 20:38 04:28 06:53 Sodium 135 L (137-145) mmol/L BUN 37 H (9-20) mg/dL Creatinine 1.58 H (0.66-1.25) mg/dL Glucose 205 H (74-99) mg/dL POC Glucose (mg/dL) 153 H 202 H (75-99) mg/dL Calcium 8.2 L (8.4-10.2) mg/dL Urine Protein (Negative) Urine Glucose (UA) (Negative) Urine Blood (Negative) Ur Leukocyte Esterase (Negative) Urine WBC (0-5) /hpf Urine WBC Clumps (None) /hpf Urine Bacteria (None) /hpf Urine Mucus (None) /hpf Microbiology - Last 24 Hours (Table) 08/05/21 20:08 Blood Culture - Preliminary Blood No Growth after 24 hours 08/05/21 19:45 Blood Culture - Preliminary Blood No Growth after 24 hours 08/06/21 13:37 Urine Culture - Preliminary Urine,Voided Assessment and Plan Assessment: Prostatitis, failed outpatient treatment Leukocytosis -Patient received Levaquin in the emergency room. The patient however has not responded to ciprofloxacin as an outpatient -UA shows large LE with nitrite on 08/05, urine culture is pending -Blood cultures prelim negative at 24H -Continue ceftriaxone -Urology consulted Gram-positive cocci in blood cultures -Continue with IV antibiotics as above -Telemetry monitoring -ID consulted -Blood cultures prelim negative at 24H Kidney injury, acute versus chronic -Improving with IV hydration -DC IVF and encourage hydration by mouth -Monitor for now Diabetes mellitus with hyperglycemia -Medium dose insulin sliding scale along with accuchecks QID and hypoglycemic precautions. Chronic conditions: Hyperlipidemia, hypertension DVT prophylaxis -Heparin subq The patient is admitted with an anticipated greater than 2 midnight stay for evaluation of prostatitis CODE STATUS: Full Code Discussed with: Patient Anticipated discharge date: 08/[address]: Home Continue IV antibiotics. Cultures are pending. Urology and Infectious disease or board. He is pending clinical improvement. Likely DC in 1-2 days.
[2021-08-07] MEDS: ACETAMINOPHEN TAB 325 MG TAB PO PRN (13:17)
[2021-08-07 16:40] LABS: Glucose,Whole Blood 212 mg/dL (75-99)
--- NOTE | 2021-08-07 19:48 | P.PN ---
Subjective NO acute overnight event, indicates dysuria is minimal, urine culture is pending Objective - Vital Signs Vital signs: Vital Signs Temp 98.1 F 08/07/21 18:40 Pulse 97 08/07/21 18:40 Resp 18 08/07/21 18:40 BP 159/77 08/07/21 18:40 Pulse Ox 92 L 08/07/21 18:40 Intake & Output 08/07/21 08/07/21 08/08/21 06:59 18:59 06:59 Output Total 300 200 Balance -300 -200 Output: Urine 300 200 Other: Voiding Method Urinal # Bowel Movements 0 - Constitutional General appearance: Present: no acute distress - Gastrointestinal General gastrointestinal: Present: soft. Absent: distended, tenderness - Labs CBC & Chem 7: 08/05/21 19:45 08/07/21 04:28 Labs: Abnormal Lab Results - Last 24 Hours (Table) 08/06/21 08/07/21 08/07/21 Range/Units 20:38 04:28 06:53 Sodium 135 L (137-145) mmol/L BUN 37 H (9-20) mg/dL Creatinine 1.58 H (0.66-1.25) mg/dL Glucose 205 H (74-99) mg/dL POC Glucose (mg/dL) 153 H 202 H (75-99) mg/dL Calcium 8.2 L (8.4-10.2) mg/dL 08/07/21 08/07/21 Range/Units 11:37 16:39 Sodium (137-145) mmol/L BUN (9-20) mg/dL Creatinine (0.66-1.25) mg/dL Glucose (74-99) mg/dL POC Glucose (mg/dL) 258 H 212 H (75-99) mg/dL Calcium (8.4-10.2) mg/dL Microbiology - Last 24 Hours (Table) 08/06/21 13:37 Urine Culture - Final Urine,Voided 08/05/21 20:08 Blood Culture - Preliminary Blood No Growth after 24 hours 08/05/21 19:45 Blood Culture - Preliminary Blood No Growth after 24 hours Assessment and Plan Assessment: this is an 89-year-old male with prostatitis and bacteremia failed outpatient by mouth antibiotics. He has been having persistent symptoms with Cipro. He is a dmitted to the hospital given to his bacteremia and failure of by mouth antibiotics as an outpatient. He was started on Levaquin and vancomycin in the ER. Currently on Vancomycin and Ceftrixone, urine culture is -F/U on Urine and blood culture -Continue IV abx -Ok for discharge once urine culture is finalized. ID is onboard
[2021-08-07 20:45] LABS: Glucose,Whole Blood 230 mg/dL (75-99)
[2021-08-07] MEDS ORDERED: CALCIUM CARBONATE 500 MG CHEWABLE PO PRN (21:15)
--- NOTE | 2021-08-07 22:38 | P.PN ---
Subjective Progress Note Date: 08/07/21 Principal diagnosis: Positive blood culture and bacteremia Patient is 89-year-old male currently being treated for prostatitis in this patient did have a outpatient positive blood culture and [facility] which has been finalized as coagulase negative staph, with a urine culture with E. coli, admitted to the hospital for IV antibiotic therapy. On today's evaluation that is 08/07/2021, the patient denies having any fever or any chills, the patient is breathing more comfortably, denies having any chest pain or shortness of breath or cough no abdominal pain no diarrhea Objective - Vital Signs Vital signs: Vital Signs Temp 97.5 F L 08/07/21 08:25 Pulse 87 08/07/21 08:25 Resp 18 08/07/21 08:25 BP 138/83 08/07/21 08:25 Pulse Ox 97 08/07/21 08:25 Intake & Output 08/06/21 08/07/21 08/07/21 18:59 06:59 18:59 Intake Total 900 Output Total 1200 300 200 Balance -300 -300 -200 Intake: Intake, IV Titration 600 Amount Levofloxacin 500Mg-D5w 100 Pmx 500 mg In Dextrose/ Water 1 100ml.bag @ 100 mls/hr IVPB ONCE ONE Rx#: [id number] Vancomycin 2,000 mg In 500 Sodium Chloride 0.9% 500 ml 500 ml @ 167 mls/hr IVPB ONCE ONE Rx#: [id number] Oral 300 Output: Urine 1200 300 200 Other: Voiding Method Urinal Urinal # Voids 6 # Bowel Movements 0 - Exam GENERAL DESCRIPTION: An elderly male lying in bed in no distress RESPIRATORY SYSTEM: Unlabored breathing , decreased breath sounds at bases HEART: S1 S2 regular rate and rhythm , ABDOMEN: Soft , no tenderness EXTREMITIES: No edema feet - Labs CBC & Chem 7: 08/05/21 19:45 08/07/21 04:28 Labs: Abnormal Lab Results - Last 24 Hours (Table) 08/06/21 08/06/21 08/06/21 Range/Units 11:42 13:37 16:53 Sodium (137-145) mmol/L BUN (9-20) mg/dL Creatinine (0.66-1.25) mg/dL Glucose (74-99) mg/dL POC Glucose (mg/dL) 262 H 228 H (75-99) mg/dL Calcium (8.4-10.2) mg/dL Urine Protein Trace H (Negative) Urine Glucose (UA) Trace H (Negative) Urine Blood Small H (Negative) Ur Leukocyte Esterase Large H (Negative) Urine WBC >182 H (0-5) /hpf Urine WBC Clumps Many H (None) /hpf Urine Bacteria Rare H (None) /hpf Urine Mucus Rare H (None) /hpf 08/06/21 08/07/21 08/07/21 Range/Units 20:38 04:28 06:53 Sodium 135 L (137-145) mmol/L BUN 37 H (9-20) mg/dL Creatinine 1.58 H (0.66-1.25) mg/dL Glucose 205 H (74-99) mg/dL POC Glucose (mg/dL) 153 H 202 H (75-99) mg/dL Calcium 8.2 L (8.4-10.2) mg/dL Urine Protein (Negative) Urine Glucose (UA) (Negative) Urine Blood (Negative) Ur Leukocyte Esterase (Negative) Urine WBC (0-5) /hpf Urine WBC Clumps (None) /hpf Urine Bacteria (None) /hpf Urine Mucus (None) /hpf Microbiology - Last 24 Hours (Table) 08/05/21 20:08 Blood Culture - Preliminary Blood No Growth after 24 hours 08/05/21 19:45 Blood Culture - Preliminary Blood No Growth after 24 hours 08/06/21 13:37 Urine Culture - Preliminary Urine,Voided Assessment and Plan (1) Positive blood culture Current Visit: Yes Status: Acute Code(s): R78.81 - BACTEREMIA SNOMED Code(s): 819423801 (2) Prostatitis Current Visit: Yes Status: Acute Code(s): N41.9 - INFLAMMATORY DISEASE OF PROSTATE, UNSPECIFIED SNOMED Code(s): 9325237 Plan: 1patient presented to hospital with weakness this patient currently undergoing treatment in the outpatient setting with Cipro for prostatitis and apparently did have positive blood as well as urine culture in the outpatient setting patient is currently not running any fever white count is normal does not look toxic clinically doubt true bacteremia positive blood culture could be skin contaminant. 2patient that culture had been finalized coagulase negative staph which is a contamination blood culture he had a negative so far no need for vancomycin 3urinary tract infection/prostatitis outpatient culture with an E. coli admission cultures are pending to continue with the Rocephin
[2021-08-08] MEDS: HEPARIN SODIUM,PORCINE/PF 5,000 UNIT/0.5 ML SYRINGE SQ SCH ×3 (00:13→15:43)
[2021-08-08 07:08] LABS: Glucose,Whole Blood 184 mg/dL (75-99)
[2021-08-08] MEDS: FUROSEMIDE 40 MG TAB PO SCH (08:15)
[2021-08-08] MEDS: ATORVASTATIN 10 MG TAB PO SCH (08:15)
[2021-08-08] MEDS: INSULIN ASPART (NovoLOG) 100 UNIT/ML VIAL SQ SCH ×3 (08:15→17:05)
[2021-08-08] MEDS: METOPROLOL SUCCINATE (ER) 50 MG TAB.ER.24H PO SCH (08:15)
--- NOTE | 2021-08-08 10:51 | P.PN ---
Subjective NO acute overnight event, indicates dysuria resolved urine culture showed no growth, urine culture from [facility] prior to starting antibiotic showed E. coli. Objective - Vital Signs Vital signs: Vital Signs Temp 97.6 F 08/08/21 08:00 Pulse 77 08/08/21 08:00 Resp 18 08/08/21 08:00 BP 137/72 08/08/21 08:00 Pulse Ox 95 08/08/21 08:00 Intake & Output 08/07/21 08/08/21 08/08/21 18:59 06:59 18:59 Output Total 200 Balance -200 Output: Urine 200 Other: Voiding Method Urinal Urinal # Voids 4 - Constitutional General appearance: Present: no acute distress - Gastrointestinal General gastrointestinal: Present: distended, soft. Absent: tenderness - Psychiatric Psychiatric: Present: A&O x's 3 - Labs CBC & Chem 7: 08/05/21 19:45 08/07/21 04:28 Labs: Abnormal Lab Results - Last 24 Hours (Table) 08/07/21 08/07/21 08/07/21 Range/Units 11:37 16:39 20:44 POC Glucose (mg/dL) 258 H 212 H 230 H (75-99) mg/dL 08/08/21 Range/Units 07:05 POC Glucose (mg/dL) 184 H (75-99) mg/dL Microbiology - Last 24 Hours (Table) 08/05/21 20:08 Blood Culture - Preliminary Blood No Growth after 48 hours 08/05/21 19:45 Blood Culture - Preliminary Blood No Growth after 48 hours 08/06/21 13:37 Urine Culture - Final Urine,Voided Assessment and Plan Assessment: this is an 89-year-old male with prostatitis and bacteremia failed outpatient by mouth antibiotics. He has been having persistent symptoms with Cipro. He is admitted to the hospital given to his bacteremia and failure of by mouth antibiotics as an outpatient. He was started on Levaquin and vancomycin in the ER. Currently on Ceftrixone, urine culture showed no growth -Okay for discharge from urology standpoint, antibiotics per ID
[2021-08-08 12:16] LABS: Glucose,Whole Blood 239 mg/dL (75-99)
--- NOTE | 2021-08-08 14:12 | P.DS ---
Providers Date of admission: 08/05/21 19:24 Expected date of discharge: 08/08/21 Attending physician: Nanette Jacques MD Consults: 08/06/21 03:25 Consult Physician Urgent Consulting Provider: Kaden Tyson Consult Reason/Comments: Prostatitis Do you want consulting provider notified?: Yes 08/06/21 06:53 Consult Physician Routine Consulting Provider: Val Rosario Consult Reason/Comments: UTI Do you want consulting provider notified?: Yes, Notify in am Primary care physician: Stated None Hospital Course: Patient is a 89-year-old male with a PMH of type II DM, hyper lipidemia, hypertension, BPH, who was sent to the emergency room by his urologist (Dr. Kaden Tyson) for positive blood and urine cultures. The patient reports that he is currently undergoing treatment for prostatitis for the past several days, and has been receiving ciprofloxacin. He reports however that his symptoms have not improved despite antibiotics, and he was informed that the blood cultures he had performed from another facility were positive. Reportedly, the blood cultures were positive for gram-positive cocci with urine culture positive for E. coli. No sensitivities were available for review. The patient reports ongoing dysuria with urinary frequency and urgency and urine significantly darker than usual. He also reports subjective chills. Denied chest discomfort, nausea, vomiting, abdominal pain. Laboratory evaluation in the emergency room revealed dullness count of 12.1, UN 47, creatinine 2.34 (no baseline available for comparison), and grossly abnormal UA. Patient was started on Rocephin. His symptoms considerably improved with IV antibiotics. Urine culture was negative at 18 hours. Blood culture was negative for 48 hours. Urology was consulted and recommended outpatient follow- up. His acute kidney injury improved with IV hydration (Cr 2.34 - 1.58 at the time of discharge). The case was discussed with Dr. Rosario who recommeded 2 weeks of Ceftin 500 mg PO BID. Patient was subsequently discharged home to follow up PCP within 1-2 days and follow up with Urology within 2 weeks of discharge. This complex discharge took about 45 minutes to complete. General: [non toxic], [no distress], [appears at stated age] Derm: [warm], [dry] Head: [atraumatic], [normocephalic], [symmetric] Eyes: [EOMI], [no lid lag], [anicteric sclera] Mouth: [no lip lesion], [mucus membranes moist] Cardiovascular: [S1S2 reg], [no murmur] Lungs: [CTA bilateral], [no rhonchi, no rales] , [no accessory muscle use] Abdominal: [soft], [ nontender to palpation], [no guarding], [no appreciable organomegaly] Ext: [no gross muscle atrophy], [no edema], [no contractures] Neuro: [no focal neuro deficits] Psych: [Alert], [oriented], [appropriate affect] Discharge diagnosis: #Prostatitis #Leukocytosis #Gram-positive cocci in blood cultures #Acute kidney injury #Diabetes mellitus with hyperglycemia #Hypertension #Dyslipidemia Pertinent Studies: UA with reflex to culture Blood culture Patient Condition at Discharge: Stable Plan - Discharge Summary Discharge Rx Participant: Yes New Discharge Prescriptions: New Cefuroxime Axetil [Ceftin] 500 mg PO BID 14 Days #28 tab Acetaminophen Tab [Tylenol] 650 mg PO Q6HR PRN tab PRN Reason: Mild Pain Or Fever > 100.5 Continue glipiZIDE [Glucotrol] 10 mg PO BID Losartan [Cozaar] 25 mg PO DAILY metFORMIN HCL [Glucophage] 500 mg PO BID Metoprolol Succinate (ER) [Toprol XL] 50 mg PO DAILY Furosemide [Lasix] 40 mg PO DAILY Simvastatin [Zocor] 20 mg PO DAILY Discontinued Ibuprofen 600 mg PO Q6H PRN PRN Reason: Pain Ciprofloxacin HCl 500 mg PO BID Discharge Medication List Furosemide [Lasix] 40 mg PO DAILY 08/05/21 [History] Losartan [Cozaar] 25 mg PO DAILY 08/05/21 [History] Metoprolol Succinate (ER) [Toprol XL] 50 mg PO DAILY 08/05/21 [History] Simvastatin [Zocor] 20 mg PO DAILY 08/05/21 [History] glipiZIDE [Glucotrol] 10 mg PO BID 08/05/21 [History] metFORMIN HCL [Glucophage] 500 mg PO BID 08/05/21 [History] Acetaminophen Tab [Tylenol] 650 mg PO Q6HR PRN tab 08/08/21 [Rx] Cefuroxime Axetil [Ceftin] 500 mg PO BID 14 Days #28 tab 08/08/21 [Rx] Follow up Appointment(s)/Referral(s): Kaden Tyson MD [STAFF PHYSICIAN] - 2 Weeks Nonstaff,Physician [REFERRING] - 1-2 days Activity/Diet/Wound Care/Special Instructions: Diet: Diabetic, Cardiac FU with PCP within 1-2 days of discharge. FU with Urology within 2 weeks of discharge. Take all medications as advised. Discharge Disposition: HOME SELF-CARE
[2021-08-08 15:35] VITALS: BP 138/70; PULSE 80; TEMP 98
[2021-08-08] MEDS ORDERED: SENNOSIDES 8.6 MG TAB PO SCH (21:00)
== END 2021-08-08 17:22 | disposition home or self-care (01) | DRG 728 ==
LOC: EC 16:06 → 4SSUR 19:24
PROVIDERS: ADMIT Internal Medicine; ATTEND Internal Medicine
DX: N41.9 Inflammatory disease of prostate, unspecified (principal); N39.0 Urinary tract infection, site not specified; N17.9 Acute kidney failure, unspecified; R78.81 Bacteremia; E78.5 Hyperlipidemia, unspecified; I11.0 Hypertensive heart disease with heart failure; E11.9 Type 2 diabetes mellitus without complications; B96.20 Unspecified Escherichia coli [E. coli] as the cause of diseases classified elsewhere; N40.0 Benign prostatic hyperplasia without lower urinary tract symptoms; B96.89 Other specified bacterial agents as the cause of diseases classified elsewhere; E11.65 Type 2 diabetes mellitus with hyperglycemia; I10 Essential (primary) hypertension; Z79.84 Long term (current) use of oral hypoglycemic drugs; Z79.899 Other long term (current) drug therapy
CPT/HCPCS: 74018; 80048; 80053; 80202; 81001; 83605; 85025; 87040; 87086; 96374; 99285

== ENCOUNTER 2022-08-23 02:10 | Inpatient (IN) | payer MEDICARE ==
[2022-08-23] MEDS ORDERED: NALOXONE 0.4 MG/ML 1 ML VIAL IV PRN (02:51)
--- NOTE | 2022-08-23 02:55 | ED ---
Skin/Abscess/FB HPI - General Chief complaint: Skin/Abscess/Foreign Body Stated complaint: Scrotal Leisions Time Seen by Provider: 08/23/22 02:44 Source: patient, EMS, RN notes reviewed Mode of arrival: EMS Limitations: no limitations - History of Present Illness Initial comments: Patient is an 89-year-old male presenting to the emergency room via EMS as a transfer from [facility] for further evaluation and treatment of scrotal edema and an abscess to the perineum located centrally that has seropurulent drainage. Reports indicate that he received a dose of vancomycin and cefepime by [facility] laboratory studies at their facility showed mild leukocytosis with a WBC of 13.87 neutrophils were normal clotting times were normal the one was slightly elevated at 26 creatinine was slightly elevated at 1.56 sodium was low at 129 potassium stable lactic acid normal. Chest x-ray and computed tomography scan of the scrotum were both obtained and disc were sent to the facility however reports are not currently available. Per report from provider [facility] no free air was seen to indicate concern for Forner's gangrene. Patient reports that his abscess has been a recurring problem and he has been on antibiotics in the past and that the abscess return. He does wear incontinence briefs but states that he does get the urge to void and urinate. Upon arrival he had foul-smelling liquid yellow stool concerning for Clostridium difficile. He denies any chest pain, shortness of breath, abdominal pain altered mental status, fevers or chills. He has a past medical history significant for diabetes, hypertension, hyperlipidemia, chronic lower extremity swelling with venous insufficiency along with his recurrent scrotal abscess. - Related Data Home Medications Medication Instructions Recorded Confirmed Furosemide [Lasix] 40 mg PO DAILY 08/05/21 08/05/21 Losartan [Cozaar] 25 mg PO DAILY 08/05/21 08/05/21 Metoprolol Succinate (ER) [Toprol 50 mg PO DAILY 08/05/21 08/05/21 XL] Simvastatin [Zocor] 20 mg PO DAILY 08/05/21 08/05/21 glipiZIDE [Glucotrol] 10 mg PO BID 08/05/21 08/05/21 metFORMIN HCL [Glucophage] 500 mg PO BID 08/05/21 08/05/21 Previous Rx's Medication Instructions Recorded Acetaminophen Tab [Tylenol] 650 mg PO Q6HR PRN tab 08/08/21 cefUROXime axetiL [Ceftin] 500 mg PO BID 14 Days #28 tab 08/08/21 Allergies Allergy/AdvReac Type Severity Reaction Status Date / Time Sulfa (Sulfonamide AdvReac Rash/Hives Verified 08/05/21 20:10 Antibiotics) Review of Systems ROS Statement: Those systems with pertinent positive or pertinent negative responses have been documented in the HPI. ROS Other: All systems not noted in ROS Statement are negative. Past Medical History Past Medical History: Diabetes Mellitus, Hyperlipidemia, Hypertension, Vascular Disorder History of Any Multi-Drug Resistant Organisms: None Reported Past Psychological History: No Psychological Hx Reported Smoking Status: Never smoker Past Alcohol Use History: None Reported Past Drug Use History: None Reported General Exam Limitations: no limitations General appearance: alert, in no apparent distress Head exam: Present: atraumatic, normocephalic, normal inspection Eye exam: Present: normal appearance, PERRL, EOMI. Absent: scleral icterus, conjunctival injection, periorbital swelling ENT exam: Present: normal exam, mucous membranes moist Neck exam: Present: normal inspection, full ROM Respiratory exam: Present: normal lung sounds bilaterally. Absent: respiratory distress, wheezes, rales, rhonchi, stridor Cardiovascular Exam: Present: regular rate, normal rhythm, normal heart sounds, systolic murmur. Absent: diastolic murmur, rubs, gallop GI/Abdominal exam: Present: soft, other (Rounded). Absent: tenderness, guarding, rebound Rectal exam: Present: deferred exam: Present: testicular tenderness, scrotal swelling, other (White penile lesion consistent with shearing and irritation. Midline perineum with abscess draining seropurulent drainage foul odor noted.) Extremities exam: Present: tenderness, pedal edema, joint swelling, other (Bilateral lower extremity erythema and warmth with anterior vascular ulcer noted to left lower extremity) Neurological exam: Present: alert, oriented X3 Psychiatric exam: Present: normal affect, normal mood Skin exam: Present: erythema (As above) Course Vital Signs 08/23/22 02:14 Pulse Rate 80 Respiratory 16 Rate Blood Pressure 131/67 O2 Sat by Pulse 95 Oximetry Medical Decision Making - Medical Decision Making Was pt. sent in by a medical professional or institution (, PA, CASE CONSULTANT, urgent care, hospital, or usp...) When possible be specific @ -No Did you speak to anyone other than the patient for history (EMS, parent, family, police, friend...)? What history was obtained from this source @ -No Did you review nursing and triage notes (agree or disagree)? Why? @ -I reviewed and agree with nursing and triage notes Were old charts reviewed (outside hosp., previous admission, EMS record, old EKG, old radiological studies, urgent care reports/EKG's, usp records)? Report findings @ -Yes, records sent with patient from [facility] including most recent medication administration and laboratory studies completed around 10 PM yesterday. No reports of chest x-ray or computed tomography scan results available but disks available given to radiology for uploading. Differential Diagnosis (chest pain, altered mental status, abdominal pain women, abdominal pain men, vaginal bleeding, weakness, fever, dyspnea, syncope, headache, dizziness, GI bleed, back pain, seizure, CVA, palpatations, mental health, musculoskeletal)? @ -Differential perineal abscess: Cellulitis, perineal abscess, perineal fistula, Forner's gangrene., this is not meant to be an all-inclusive list EKG interpreted by me (3pts min.). @ -None done X-rays interpreted by me (1pt min.). @ -None done CT interpreted by me (1pt min.). @ -None done U/S interpreted by me (1pt. min.). @ -None done What testing was considered but not performed or refused? (CT, X-rays, U/S, labs)? Why? @ -None What meds were considered but not given or refused? Why? @ -None Did you discuss the management of the patient with other professionals (shiva bell i.e. , PA, CASE CONSULTANT, lab, RT, psych nurse, social insurance adviser, pocket setter lockstitch, teacher, chief environmental commitment officer, case technician)? Give summary @ -Yes, spoke with Dr. Buckley admitting provider for patient's primary care provider regarding patient's workup at [facility] and transferred to this facility for further evaluation and treatment of perineal abscess along with urology consult. Will place admission orders along with consult updated labs ordered as well as addition to cluster him to for several PCR he denies any further labs at this time. Was smoking cessation discussed for >3mins.? @ -No Was critical care preformed (if so, how long)? @ -No Were there social determinants of health that impacted care today? How? (Homelessness, low income, unemployed, alcoholism, drug addiction, transportation, low edu. Level, literacy, decrease access to med. care, custodial, rehab)? @ -No Was there de-escalation of care discussed even if they declined (Discuss DNR or withdrawal of care, Hospice)? DNR status @ -No What co-morbidities impacted this encounter? (DM, HTN, Smoking, COPD, CAD, Cancer, CVA, ARF, Chemo, Hep., AIDS, mental health diagnosis, sleep apnea, morbid obesity)? @ -None Was patient admitted / discharged? Hospital course, mention meds given and route, prescriptions, significant lab abnormalities, going to OR and other pertinent info. @ -11-year-old male presenting to the emergency room via EMS as a transfer from [facility] for further evaluation and treatment of scrotal edema and an abscess to the perineum located centrally that has seropurulent drainage. Reports indicate that he received a dose of vancomycin and cefepime by [facility] laboratory studies at their facility showed mild leukocytosis with a WBC of 13.87 neutrophils were normal clotting times were normal the one was slightly elevated at 26 creatinine was slightly elevated at 1.56 sodium was low at 129 potassium stable lactic acid normal. Chest x-ray and computed tomography scan of the scrotum were both obtained and disc were sent to the facility however reports are not currently available. Per report from provider [facility] no free air was seen to indicate concern for Forner's gangrene. Will update laboratory studies with CBC, CMP, blood cultures, wound culture and obtain stool studies for C. diff. Given most recent laboratory studies with normal lactic acid will defer repeat lactic acid level at this time. Laboratory studies available from - at outside facility findings discussed with on-call provider advising not laboratory studies at this facility and uploading of imaging pending. He is accepting of admission and denies any further orders. Will admit patient in stable condition to medical surgical unit under sound physicians for further evaluation and treatment of perineal abscess with consult to urology. Undiagnosed new problem with uncertain prognosis? @ -No Drug Therapy requiring intensive monitoring for toxicity (Heparin, Nitro, Insulin, Cardizem)? @ -No Were any procedures done? @ -No Diagnosis/symptom? @ -Perineal abscess Acute, or Chronic, or Acute on Chronic? @ -Acute Uncomplicated (without systemic symptoms) or Complicated (systemic symptoms)? @ -Complicated Side effects of treatment? @ -No Exacerbation, Progression, or Severe Exacerbation? @ -No Poses a threat to life or bodily function? How? (Chest pain, USA, MD, pneumonia, PE, COPD, DKA, ARF, appy, cholecystitis, CVA, Diverticulitis, Homicidal, Suicidal, threat to staff... and all critical care pts) @ -Yes, no response to oral antibiotics high risk for sepsis and shock. Case discussed with Dr. Lewis. Disposition Clinical Impression: Perineal abscess Disposition: ADMITTED IP TO THIS [facility] Condition: Stable Is patient prescribed a controlled substance at d/c from ED?: No Referrals: Tylor Smith MD [Primary Care Provider] - 1-2 days Time of Disposition: 03:07
[2022-08-23 03:29] LABS: Calcium 8.7 mg/dL (8.4-10.2); Potassium 4.1 mmol/L (3.5-5.1); Total Protein 5.9 g/dL (6.3-8.2)
[2022-08-23] MEDS ORDERED: traMADol 50 MG TAB PO STA (03:35)
[2022-08-23 03:48] LABS: Basophils % (A) 0 %; Eosinophils # (A) 0.1 k/uL (0-0.7); Eosinophils % (A) 1 %; HCT 46.8 % (39.0-53.0); HGB 15.4 gm/dL (13.0-17.5); Lymphocytes # (A) 0.9 k/uL (1.0-4.8); Lymphocytes % (A) 8 %; MCH 31.9 pg (25.0-35.0); MCHC 32.9 g/dL (31.0-37.0); Mean Platelet Volume 7.3; Monocytes # (A) 0.9 k/uL (0-1.0); Monocytes % (A) 9 %; Neutrophils % (A) 81 %; Platelet Count 174 k/uL (150-450); RBC 4.82 m/uL (4.30-5.90); RDW 12.6 % (11.5-15.5)
[2022-08-23] MEDS ORDERED: ACETAMINOPHEN TAB 325 MG TAB PO PRN (04:32)
[2022-08-23] MEDS ORDERED: VANCOMYCIN IV PER PHARMACY 1 EACH MISC MISCELLANE PRN (04:36)
--- NOTE | 2022-08-23 04:36 | P.HPIM ---
History of Present Illness H&P Date: 08/23/22 Chief Complaint: perineal abscess 89 year old male with DM , hypertension patient transferred from [facility] for urologic evaluation of recurrent perineal abscess . imaging done over there showed no free gas in the area of the abscess, with no concerns to fornier disease. reports are not available to me at this time, the results were verbally reported to me by our ED staff. patient was treated for UTI/prostatits and discharge from our facility 2 weeks a go . he denies any fever, chills, abd pain , scrotal pain. he noticed some discomfort , followed by bloody bowel movement X2 today , for which he seeked evaluation. while at [facility] and enroute to our facility he claims having multiple bowel movement that were loose , non bloody . again denies abd pain. at [facility] , he found to have a suspicious perineal abscess and was sent here for further evaluation patient has bilateral chronic changes in his legs, he claims that these has been going on for years, where he develops blisters that bursts all the time. with chronic reddness and discomfort he denies smoking or illicit drugs he denies any history of GI bleeding , denies being on blood thinners, denies any urinary changes. he claims that diarrhea just started today and initially was associated with blood described as bloody bowel movement X2 then cleared into yellow diarrhea as described above. Review of Systems Pertinent positives as noted in HPI. All other systems were reviewed and are negative Past Medical History Past Medical History: Diabetes Mellitus, Hyperlipidemia, Hypertension, Vascular Disorder History of Any Multi-Drug Resistant Organisms: None Reported Past Psychological History: No Psychological Hx Reported Smoking Status: Never smoker Past Alcohol Use History: None Reported Past Drug Use History: None Reported Medications and Allergies Home Medications Medication Instructions Recorded Confirmed Type Furosemide [Lasix] 40 mg PO DAILY 08/05/21 08/05/21 History Losartan [Cozaar] 25 mg PO DAILY 08/05/21 08/05/21 History Metoprolol Succinate (ER) [Toprol 50 mg PO DAILY 08/05/21 08/05/21 History XL] Simvastatin [Zocor] 20 mg PO DAILY 08/05/21 08/05/21 History glipiZIDE [Glucotrol] 10 mg PO BID 08/05/21 08/05/21 History metFORMIN HCL [Glucophage] 500 mg PO BID 08/05/21 08/05/21 History Acetaminophen Tab [Tylenol] 650 mg PO Q6HR PRN tab 08/08/21 Rx cefUROXime axetiL [Ceftin] 500 mg PO BID 14 Days #28 tab 08/08/21 Rx Allergies Allergy/AdvReac Type Severity Reaction Status Date / Time Sulfa (Sulfonamide AdvReac Rash/Hives Verified 08/05/21 20:10 Antibiotics) Physical Exam Vitals: Vital Signs Pulse Resp BP Pulse Ox 08/23/22 02:14 80 16 131/67 95 Intake and Output 08/22/22 08/22/22 08/23/22 14:59 22:59 06:59 Other: Weight 113.398 kg Constitutional: No acute distress, conversant, pleasant Eyes: Anicteric sclerae, moist conjunctiva, Pupils equal round reactive to light ENMT: NC/AT Oropharynx clear, no erythema, or exudates Neck: Supple, no masses, or JVD No carotid bruits No thyromegaly Lungs: Clear to auscultation Clear to percussion Normal respiratory effort, no accessory muscle use Cardiovascular: Heart regular in rate and rhythm, No murmurs, gallops, or rubs trace peripheral edema Abdominal: Soft Nontender, no guarding, rebound or rigidity Abdomen moving with respiration Normoactive bowel sounds No hepatomegaly, No splenomegaly No palpable mass No abdominal wall hernia noted Skin: erythema and warmth to the touch with sloughing of small area of skin over the tavares of left leg anteriorly over the upper third of the leg. left leg worse than right no abscess was felt over the perineal region, except for a small hole with yellowish spot .behind the scrotum. Extremities: No digital cyanosis No clubbing Pedal pulses intact and symmetrical Radial pulses intact and symmetrical No calf tenderness Psychiatric: Alert and oriented to person, place and time Appropriate affect Neuro Muscles Strength 5/5 in all 4 extremities Sensation to light touch grossly present throughout Cranial nerves II-XII grossly intact Lymphatics: no palpable cervical or supraclavicular lymph nodes Results CBC & Chem 7: 08/23/22 02:44 08/23/22 02:44 Labs: Abnormal Lab Results - Last 24 Hours (Table) 08/23/22 08/23/22 Range/Units 02:44 02:44 WBC 11.0 H (3.8-10.6) k/uL Neutrophils # 9.0 H (1.3-7.7) k/uL Lymphocytes # 0.9 L (1.0-4.8) k/uL Sodium 132 L (137-145) mmol/L Chloride 97 L (98-107) mmol/L BUN 29 H (9-20) mg/dL Creatinine 1.44 H (0.66-1.25) mg/dL Glucose 272 H (74-99) mg/dL Total Protein 5.9 L (6.3-8.2) g/dL Albumin 3.0 L (3.5-5.0) g/dL Assessment and Plan Assessment: 89 year old male with DM , hypertension , transferred to our facility for urology evaluation due to possible perineal abscess I discussed the case with ED doc and I accepted the admission for IV antibiotics and further urology eval perineal swelling rule out abscess imaging done at [facility] shows no free air , reports not available to me WBC elevated 13.5 afebrile urology eval unasyn 3 gm IVP B q6hr tylenol for fever tramadol for pain cellulitis of left leg vanco dosing by pharmacy follow up cultures acute diarrhea c diff negative symptomatic control DM insulin sliding scale CKD III, stable monitor urine output bun 29, cr 1.44, K 4.1 hypertension , controlled continue metoprolol 50 mg po daily continue losartan 25 mg po daily GI bleeding resolved hgb stable 15.4 full code DVT PPX heparin sc tid 5000 units
[2022-08-23] MEDS ORDERED: VANCOMYCIN 1,750 MG in SODIUM CHLORIDE 0.9% 500 ML 500 ML IVPB ONE (05:00)
[2022-08-23] MEDS ORDERED: VANCOMYCIN 1,500 MG in SODIUM CHLORIDE 0.9% 500 ML 500 ML IVPB ONE (05:00)
[2022-08-23] MEDS: AMPICILLIN-SULBACTAM 3 GM in SODIUM CHLORIDE 0.9% 100 ML IVPB SCH ×4 (05:08→23:16)
[2022-08-23 06:36] LABS: Glucose,Whole Blood 255 mg/dL (70-110)
[2022-08-23] MEDS: INSULIN ASPART (NovoLOG) 100 UNIT/ML VIAL SQ SCH ×4 (06:52→21:33)
--- NOTE | 2022-08-23 07:34 | P.GSCN ---
History of Present Illness Consult date: 08/23/22 History of present illness: 89-year-old gentleman transferred from [facility] because of a possible scrotal or perineal abscess. We're asked to see. Patient is afebrile. White count was 11,000. The patient has had this problem for up to 6 months he states. He has not seen a doctor until yesterday [facility]. He states the lesional open and close. He has had diarrhea. The lesion is down just above the anus according to the patient. Review of Systems All systems: negative - Constitutional Denies fever, Denies weight loss - EENT Eyes: denies blurred vision Ears, nose, mouth and throat: Denies dysphagia - Cardiovascular Denies chest pain, Denies shortness of breath - Respiratory Denies cough, Denies 7 - Gastrointestinal Reports as per HPI - Genitourinary Denies dysuria, Denies hematuria - Integumentary Denies rash, Denies unusual bruising - Neurological Denies headaches, Denies syncope - Hematologic/Lymphatic Denies easy bleeding, Denies easy bruising Past Medical History Past Medical History: Diabetes Mellitus, Hyperlipidemia, Hypertension, Vascular Disorder History of Any Multi-Drug Resistant Organisms: None Reported Past Anesthesia/Blood Transfusion Reactions: No Reported Reaction Past Psychological History: No Psychological Hx Reported Smoking Status: Former smoker Past Alcohol Use History: None Reported Past Drug Use History: None Reported Medications and Allergies Home Medications Medication Instructions Recorded Confirmed Type Furosemide [Lasix] 40 mg PO DAILY 08/05/21 08/05/21 History Losartan [Cozaar] 25 mg PO DAILY 08/05/21 08/05/21 History Metoprolol Succinate (ER) [Toprol 50 mg PO DAILY 08/05/21 08/05/21 History XL] Simvastatin [Zocor] 20 mg PO DAILY 08/05/21 08/05/21 History glipiZIDE [Glucotrol] 10 mg PO BID 08/05/21 08/05/21 History metFORMIN HCL [Glucophage] 500 mg PO BID 08/05/21 08/05/21 History Acetaminophen Tab [Tylenol] 650 mg PO Q6HR PRN tab 08/08/21 Rx cefUROXime axetiL [Ceftin] 500 mg PO BID 14 Days #28 tab 08/08/21 Rx Allergies Allergy/AdvReac Type Severity Reaction Status Date / Time Sulfa (Sulfonamide AdvReac Rash/Hives Verified 08/05/21 20:10 Antibiotics) Surgical - Exam Vital Signs Pulse Resp BP Pulse Ox 80 16 131/67 95 08/23/22 02:14 08/23/22 02:14 08/23/22 02:14 08/23/22 02:14 - General well developed, well nourished, no distress, obese - Eyes normal ocular movement, no icteric - ENT no hearing loss, no congestion - Neck no masses, trachea midline - Respiratory normal respiratory effort, clear to auscultation - Abdomen Abdomen: soft, non tender, no guarding, no rigid, no rebound - Genitourinary Patient has minimal scrotal swelling. There is tenderness and slight swelling in the perineum just above the anus. He has blood and purulence on his dressing but I cannot identify an obvious abscess on examination. There is no crepitus. normal penis with no external lesions, testicles present - Integumentary no rash, no abnormal pigmentation - Neurologic no disoriented, no combative - Musculoskeletal Chronic venous stasis edema with ulcers. - Psychiatric oriented to time, oriented to person, oriented to place, speech is normal, memory intact Results - Labs 08/23/22 02:44 08/23/22 02:44 Abnormal Lab Results - Last 24 Hours (Table) 08/23/22 08/23/22 08/23/22 Range/Units 02:44 02:44 06:35 WBC 11.0 H (3.8-10.6) k/uL Neutrophils # 9.0 H (1.3-7.7) k/uL Lymphocytes # 0.9 L (1.0-4.8) k/uL Sodium 132 L (137-145) mmol/L Chloride 97 L (98-107) mmol/L BUN 29 H (9-20) mg/dL Creatinine 1.44 H (0.66-1.25) mg/dL Glucose 272 H (74-99) mg/dL POC Glucose (mg/dL) 255 H (70-110) mg/dL Total Protein 5.9 L (6.3-8.2) g/dL Albumin 3.0 L (3.5-5.0) g/dL Diabetes panel 08/23/22 Range/Units 02:44 Sodium 132 L (137-145) mmol/L Potassium 4.1 (3.5-5.1) mmol/L Chloride 97 L (98-107) mmol/L Carbon Dioxide 27 (22-30) mmol/L BUN 29 H (9-20) mg/dL Creatinine 1.44 H (0.66-1.25) mg/dL Glucose 272 H (74-99) mg/dL Calcium 8.7 (8.4-10.2) mg/dL AST 25 (17-59) U/L ALT 26 (4-49) U/L Alkaline Phosphatase 89 (38-126) U/L Total Protein 5.9 L (6.3-8.2) g/dL Albumin 3.0 L (3.5-5.0) g/dL Calcium panel 08/23/22 Range/Units 02:44 Calcium 8.7 (8.4-10.2) mg/dL Albumin 3.0 L (3.5-5.0) g/dL Pituitary panel 08/23/22 Range/Units 02:44 Sodium 132 L (137-145) mmol/L Potassium 4.1 (3.5-5.1) mmol/L Chloride 97 L (98-107) mmol/L Carbon Dioxide 27 (22-30) mmol/L BUN 29 H (9-20) mg/dL Creatinine 1.44 H (0.66-1.25) mg/dL Glucose 272 H (74-99) mg/dL Calcium 8.7 (8.4-10.2) mg/dL Adrenal panel 08/23/22 Range/Units 02:44 Sodium 132 L (137-145) mmol/L Potassium 4.1 (3.5-5.1) mmol/L Chloride 97 L (98-107) mmol/L Carbon Dioxide 27 (22-30) mmol/L BUN 29 H (9-20) mg/dL Creatinine 1.44 H (0.66-1.25) mg/dL Glucose 272 H (74-99) mg/dL Calcium 8.7 (8.4-10.2) mg/dL Total Bilirubin 1.0 (0.2-1.3) mg/dL AST 25 (17-59) U/L ALT 26 (4-49) U/L Alkaline Phosphatase 89 (38-126) U/L Total Protein 5.9 L (6.3-8.2) g/dL Albumin 3.0 L (3.5-5.0) g/dL Assessment and Plan Assessment: Impression: Perineal abscess, drained. Possible perirectal abscess. Diarrhea. Diabetes. Recommendations: There is nothing surgical to drain at this point in time. I think the patient would benefit from a general surgical evaluation for possible perirectal abscess or fistula.
[2022-08-23] MEDS: LOSARTAN 25 MG TAB PO SCH (08:12)
[2022-08-23] MEDS: HEPARIN SODIUM,PORCINE/PF 5,000 UNIT/0.5 ML SYRINGE SQ SCH ×3 (08:12→23:16)
[2022-08-23] MEDS: ATORVASTATIN 10 MG TAB PO SCH (08:12)
[2022-08-23] MEDS: METOPROLOL SUCCINATE (ER) 50 MG TAB.ER.24H PO SCH (08:12)
--- NOTE | 2022-08-23 09:37 | P.GSCN ---
History of Present Illness Consult date: 08/23/22 Reason for Consult: Perirectal abscess History of present illness: This 89-year-old male who has a 9 month history of intermittent drainage of pus and bloody fluid near his anus. The patient states the abscess, goes. The patient was admitted to the hospital yesterday due to passing some bloody purulent fluid yesterday. Past Medical History Past Medical History: Diabetes Mellitus, Hyperlipidemia, Hypertension, Vascular Disorder History of Any Multi-Drug Resistant Organisms: None Reported Past Anesthesia/Blood Transfusion Reactions: No Reported Reaction Past Psychological History: No Psychological Hx Reported Smoking Status: Former smoker Past Alcohol Use History: None Reported Past Drug Use History: None Reported Medications and Allergies Home Medications Medication Instructions Recorded Confirmed Type Furosemide [Lasix] 40 mg PO DAILY 08/05/21 08/05/21 History Losartan [Cozaar] 25 mg PO DAILY 08/05/21 08/05/21 History Metoprolol Succinate (ER) [Toprol 50 mg PO DAILY 08/05/21 08/05/21 History XL] Simvastatin [Zocor] 20 mg PO DAILY 08/05/21 08/05/21 History glipiZIDE [Glucotrol] 10 mg PO BID 08/05/21 08/05/21 History metFORMIN HCL [Glucophage] 500 mg PO BID 08/05/21 08/05/21 History Acetaminophen Tab [Tylenol] 650 mg PO Q6HR PRN tab 08/08/21 Rx cefUROXime axetiL [Ceftin] 500 mg PO BID 14 Days #28 tab 08/08/21 Rx Allergies Allergy/AdvReac Type Severity Reaction Status Date / Time Sulfa (Sulfonamide AdvReac Rash/Hives Verified 08/05/21 20:10 Antibiotics) Surgical - Exam Vital Signs Pulse Resp BP Pulse Ox 80 16 131/67 95 08/23/22 02:14 08/23/22 02:14 08/23/22 02:14 08/23/22 02:14 - General well developed, well nourished, no distress - Eyes PERRL - ENT normal pinna - Respiratory normal expansion - Cardiovascular Rhythm: regular - Abdomen Abdomen: soft, non tender - Rectum There is evidence of a small draining abscess over the patient's perineal body. This is most likely due to a perirectal abscess. Results - Labs 08/23/22 02:44 08/23/22 02:44 Abnormal Lab Results - Last 24 Hours (Table) 08/23/22 08/23/22 08/23/22 Range/Units 02:44 02:44 06:35 WBC 11.0 H (3.8-10.6) k/uL Neutrophils # 9.0 H (1.3-7.7) k/uL Lymphocytes # 0.9 L (1.0-4.8) k/uL Sodium 132 L (137-145) mmol/L Chloride 97 L (98-107) mmol/L BUN 29 H (9-20) mg/dL Creatinine 1.44 H (0.66-1.25) mg/dL Glucose 272 H (74-99) mg/dL POC Glucose (mg/dL) 255 H (70-110) mg/dL Total Protein 5.9 L (6.3-8.2) g/dL Albumin 3.0 L (3.5-5.0) g/dL Diabetes panel 08/23/22 Range/Units 02:44 Sodium 132 L (137-145) mmol/L Potassium 4.1 (3.5-5.1) mmol/L Chloride 97 L (98-107) mmol/L Carbon Dioxide 27 (22-30) mmol/L BUN 29 H (9-20) mg/dL Creatinine 1.44 H (0.66-1.25) mg/dL Glucose 272 H (74-99) mg/dL Calcium 8.7 (8.4-10.2) mg/dL AST 25 (17-59) U/L ALT 26 (4-49) U/L Alkaline Phosphatase 89 (38-126) U/L Total Protein 5.9 L (6.3-8.2) g/dL Albumin 3.0 L (3.5-5.0) g/dL Calcium panel 08/23/22 Range/Units 02:44 Calcium 8.7 (8.4-10.2) mg/dL Albumin 3.0 L (3.5-5.0) g/dL Pituitary panel 08/23/22 Range/Units 02:44 Sodium 132 L (137-145) mmol/L Potassium 4.1 (3.5-5.1) mmol/L Chloride 97 L (98-107) mmol/L Carbon Dioxide 27 (22-30) mmol/L BUN 29 H (9-20) mg/dL Creatinine 1.44 H (0.66-1.25) mg/dL Glucose 272 H (74-99) mg/dL Calcium 8.7 (8.4-10.2) mg/dL Adrenal panel 08/23/22 Range/Units 02:44 Sodium 132 L (137-145) mmol/L Potassium 4.1 (3.5-5.1) mmol/L Chloride 97 L (98-107) mmol/L Carbon Dioxide 27 (22-30) mmol/L BUN 29 H (9-20) mg/dL Creatinine 1.44 H (0.66-1.25) mg/dL Glucose 272 H (74-99) mg/dL Calcium 8.7 (8.4-10.2) mg/dL Total Bilirubin 1.0 (0.2-1.3) mg/dL AST 25 (17-59) U/L ALT 26 (4-49) U/L Alkaline Phosphatase 89 (38-126) U/L Total Protein 5.9 L (6.3-8.2) g/dL Albumin 3.0 L (3.5-5.0) g/dL Assessment and Plan Assessment: Chronic perirectal abscess. Patient will undergo incision drainage of the abscess on Tuesday.
[2022-08-23 11:25] LABS: Glucose,Whole Blood 212 mg/dL (70-110)
[2022-08-23] MEDS ORDERED: MORPHINE SULFATE 4 MG/ML SYRINGE IVP PRN (16:34)
[2022-08-23 16:36] LABS: Glucose,Whole Blood 207 mg/dL (70-110)
[2022-08-23] MEDS ORDERED: DEXTROSE 50% SYRINGE 50 ML IVP PRN ×2 (16:42)
--- NOTE | 2022-08-23 16:45 | P.PN ---
Subjective Progress Note Date: 08/23/22 Hospital course: Patient is a very pleasant 89-year-old male with a past medical history of hypertension, hyperlipidemia, peripheral vascular disease of bilateral lower extremities, and hvk-mfrndti-uzynhefsz diabetes mellitus. He presented to the emergency department as a transfer from [facility] to be evaluated by urologist secondary to perineal abscess. Imaging was completed at [facility] which per documentation in chart showed no free gas in the area of the bed with no concerns of Bhavna's. Imaging reports are not available for review at this time. Disc was sent to radiology department to be uploaded for review. Patient reports he initially presented to [facility] secondary to diarrhea described as loose and mucousy. He denies having any melena or hematochezia. Patient was admitted under our services for evaluation of Perineal abscess with consultation to urology. Underwent evaluation by urologist, Dr. Dang recommending general surgery consult. Consult placed to general surgeon, Dr. Bauman and discussed plan of care, he reports plans to take patient to OR for incision and drainage of Perirectal abscess on Tuesday08/25/22. Physical exam: Patient seen and fully evaluated at bedside. Patient reports pain/discomfort to perineal region. Vital signs reviewed and stable. General: Nontoxic, no distress and appears stated age. Derm: Skin warm and dry, normal coloration for ethnicity. Patient has mild sw elling with small amount of purulent drainage from abscess directly behind scrotum to perineal area. Head: Atraumatic, normocephalic and symmetric. Eyes: EOMs intact, no lid lag, and anicteric sclera Mouth: no lip lesions, mucus membranes moist Cardiovascular: regular rate and rhythm with normal S1S2, systolic murmur, positive posterior tibial pulses bilaterally, and cap refill < 2 seconds. Lungs: Respirations even, regular, and unlabored on room air. Lungs CTA bilaterally, no rhonchi, no rales, no wheezing, and no accessory muscle usage. Abdominal: Obese distended abdomen, nontender to palpation, no guarding, no appreciable organomegaly Ext: ROM intact. No gross muscle atrophy, no contractures. Bilateral lower extremity venous discoloration and swelling. Left tavares with small area of sloughing, increased redness and warmth. Neuro: Speech clear, face symmetrical and CN II-XII grossly intact with no noted focal neuro deficits Psych: Alert and oriented to person, place, time, and situation. Appropriate and pleasant affect. Assessment and Plan of Care: Perirectal abscess -Consult placed to general surgeon, Dr. Bauman and discussed plan of care, he reports plans to take patient to OR for incision and drainage of Perirectal abscess on Tuesday08/25/22. -Imaging at [facility] which per documentation on chart showed no free gas in the area of the bed with no concerns of Bhavna's. Imaging reports are not available for review at this time. -Patient to continue with Unasyn 3 g every 6 hours. -Symptomatic care and pain management -Order placed to turn every 2 hours and as needed to offload from perineal region. Left lower extremity cellulitis -Vancomycin 1750 mg every 24 hours. Follow up on vancomycin troph and renal function. -We will follow up on wound culture. 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 Patient placed on glycemic protocol with NovoLog sliding scale. Current blood glucose 255. -We will follow up on hemoglobin A1c. Hypertension Hyperlipidemia Peripheral vascular disease of bilateral lower extremities -Monitor vital signs and continue daily medication regimen with losartan 25 mg daily, metoprolol 50 mg daily, and simvastatin 20 mg daily. CODE STATUS:[] DVT prophylaxis: [] Discussed with: [] Anticipated discharge date: [] Anticipated discharge place: [] Patient was seen independently by Nurse Pracitioner. This document was prepared using [employer] dictation software. Please allow for errors in assurance engineer, while rare they do occur. Christopher Nix NP rendered care for this patient independently, reviewed the findings and plan as documented in the note above. I did not physically speak with or examine the patient on this date. Objective - Vital Signs Vital signs: Vital Signs Temp 97.6 F 08/23/22 13:54 Pulse 86 08/23/22 13:54 Resp 18 08/23/22 13:54 BP 115/66 08/23/22 13:54 Pulse Ox 96 08/23/22 13:54 FiO2 Intake & Output 08/22/22 08/23/22 08/23/22 18:59 06:59 18:59 Weight 113.398 kg Other: Voiding Method Toilet # Voids 2 # Bowel Movements 1 - Labs CBC & Chem 7: 08/23/22 02:44 08/23/22 02:44 Labs: Abnormal Lab Results - Last 24 Hours (Table) 08/23/22 08/23/22 08/23/22 Range/Units 02:44 02:44 06:35 WBC 11.0 H (3.8-10.6) k/uL Neutrophils # 9.0 H (1.3-7.7) k/uL Lymphocytes # 0.9 L (1.0-4.8) k/uL Sodium 132 L (137-145) mmol/L Chloride 97 L (98-107) mmol/L BUN 29 H (9-20) mg/dL Creatinine 1.44 H (0.66-1.25) mg/dL Glucose 272 H (74-99) mg/dL POC Glucose (mg/dL) 255 H (70-110) mg/dL Total Protein 5.9 L (6.3-8.2) g/dL Albumin 3.0 L (3.5-5.0) g/dL 08/23/22 Range/Units 11:24 WBC (3.8-10.6) k/uL Neutrophils # (1.3-7.7) k/uL Lymphocytes # (1.0-4.8) k/uL Sodium (137-145) mmol/L Chloride (98-107) mmol/L BUN (9-20) mg/dL Creatinine (0.66-1.25) mg/dL Glucose (74-99) mg/dL POC Glucose (mg/dL) 212 H (70-110) mg/dL Total Protein (6.3-8.2) g/dL Albumin (3.5-5.0) g/dL
[2022-08-23 20:52] LABS: Glucose,Whole Blood 224 mg/dL (70-110)
[2022-08-24] MEDS: BENZONATATE 100 MG CAP PO PRN (04:36)
[2022-08-24] MEDS: AMPICILLIN-SULBACTAM 3 GM in SODIUM CHLORIDE 0.9% 100 ML IVPB SCH ×3 (05:08→17:02)
[2022-08-24 06:19] LABS: Glucose,Whole Blood 213 mg/dL (70-110)
[2022-08-24] MEDS: INSULIN ASPART (NovoLOG) 100 UNIT/ML VIAL SQ SCH ×4 (06:30→21:50)
[2022-08-24] MEDS ORDERED: VANCOMYCIN 1,750 MG in SODIUM CHLORIDE 0.9% 500 ML 500 ML IVPB SCH (07:00)
[2022-08-24] MEDS: METOPROLOL SUCCINATE (ER) 50 MG TAB.ER.24H PO SCH (07:53)
[2022-08-24] MEDS: HEPARIN SODIUM,PORCINE/PF 5,000 UNIT/0.5 ML SYRINGE SQ SCH ×2 (07:53→17:02)
[2022-08-24] MEDS: LOSARTAN 25 MG TAB PO SCH (07:53)
[2022-08-24] MEDS: ATORVASTATIN 10 MG TAB PO SCH (07:53)
[2022-08-24 07:54] LABS: African American GFR (CKD) 53 (>60 ml/min/1.73 sqM); Anion Gap 8 mmol/L; Blood Urea Nitrogen 25 mg/dL (9-20); Calcium 8.1 mg/dL (8.4-10.2); Carbon Dioxide 24 mmol/L (22-30); Chloride 104 mmol/L (98-107); Glucose 180 mg/dL (74-99); Non-African American GFR(CKD) 46 (>60 ml/min/1.73 sqM); Potassium 4.1 mmol/L (3.5-5.1); Sodium 136 mmol/L (137-145)
[2022-08-24 11:10] LABS: Glucose,Whole Blood 229 mg/dL (70-110)
--- NOTE | 2022-08-24 13:07 | P.PN ---
Subjective Progress Note Date: 08/24/22 CHIEF COMPLAINT: Perirectal abscess HISTORY OF PRESENT ILLNESS: Patient continues to have purulent drainage from the perineal area. Does have some tenderness. Patient complaining of diarrhea. Medicine service has ordered fecal management system. Afebrile. Sodium 136 potassium is 4.1 creatinine 1.35 PHYSICAL EXAM: VITAL SIGNS: Reviewed. GENERAL: Well-developed in no acute distress. HEENT: No sclera icterus. Extraocular movements grossly intact. Moist buccal mucosa. Head is atraumatic, normocephalic. ABDOMEN: Soft. Nondistended. Nontender. NEUROLOGIC: Alert and oriented. Cranial nerves II through XII grossly intact. : Patient has purulent drainage from the perineum. Tenderness with palpation. Swollen testicles noted ASSESSMENT: 1. Chronic perirectal abscess 2. Diabetes mellitus PLAN: -Patient scheduled for incision and drainage of perirectal abscess with Dr. Bauman tomorrow, 08/25/2022 -Nothing by mouth after midnight -Continue IV antibiotics -Okay for fecal management system from surgical service standpoint -Continue tight control of blood sugars Physician Hot Tar Roofer Helper note has been reviewed by physician. Signing provider agrees with the documented findings, assessment, and plan of care. Objective - Vital Signs Vital signs: Vital Signs Temp 98.6 F 08/24/22 07:51 Pulse 80 08/24/22 07:51 Resp 18 08/24/22 07:51 BP 134/68 08/24/22 07:51 Pulse Ox 95 08/24/22 07:51 FiO2 Intake & Output 08/23/22 08/24/22 08/24/22 18:59 06:59 18:59 Intake Total 200 Output Total 100 Balance -100 200 Intake: Intake, IV Titration 200 Amount Ampicillin-Sulbactam 3 gm 200 In Sodium Chloride 0.9% 100 ml @ 200 mls/hr IVPB Q6HR REPLACED BY [facility] Rx#:[id number] Output: Urine 100 Other: Voiding Method Toilet Toilet # Voids 2 5 # Bowel Movements 3 5 - Labs CBC & Chem 7: 08/23/22 02:44 08/24/22 06:39 Labs: Abnormal Lab Results - Last 24 Hours (Table) 08/23/22 08/23/22 08/24/22 Range/Units 16:34 20:52 06:18 Sodium (137-145) mmol/L BUN (9-20) mg/dL Creatinine (0.66-1.25) mg/dL Glucose (74-99) mg/dL POC Glucose (mg/dL) 207 H 224 H 213 H (70-110) mg/dL Hemoglobin A1c (0.0-6.0) % Calcium (8.4-10.2) mg/dL 08/24/22 08/24/22 08/24/22 Range/Units 06:39 06:39 11:10 Sodium 136 L (137-145) mmol/L BUN 25 H (9-20) mg/dL Creatinine 1.35 H (0.66-1.25) mg/dL Glucose 180 H (74-99) mg/dL POC Glucose (mg/dL) 229 H (70-110) mg/dL Hemoglobin A1c 9.7 H (0.0-6.0) % Calcium 8.1 L (8.4-10.2) mg/dL Microbiology - Last 24 Hours (Table) 08/23/22 02:49 Gram Stain - Preliminary Other - Other Wound Culture - Preliminary Gram Neg Bacilli
--- NOTE | 2022-08-24 14:32 | P.PN ---
Subjective Progress Note Date: 08/24/22 Hospital course: Patient is a very pleasant 89-year-old male with a past medical history of hypertension, hyperlipidemia, peripheral vascular disease of bilateral lower extremities, and evp-iargfid-zuevtykvd diabetes mellitus. He presented to the emergency department as a transfer from [facility] to be evaluated by urologist secondary to perineal abscess. Imaging was completed at [facility] which per documentation in chart showed no free gas in the area of the bed with no concerns of Bhavna's. Imaging reports are not available for review at this time. Disc was sent to radiology department to be uploaded for review. Patient reports he initially presented to [facility] secondary to diarrhea described as loose and mucousy. He denies having any melena or hematochezia. Patient was admitted under our services for evaluation of Perineal abscess with consultation to urology. Underwent evaluation by urologist, Dr. Dang recommending general surgery consult. Consult placed to general surgeon, Dr. Bauman and discussed plan of care, he reports plans to take patient to OR for incision and drainage of Perirectal abscess on Tuesday08/25/22. Physical exam: Patient seen and fully evaluated at bedside. Patient reports pain/discomfort to perineal region and RN reports continued episodes of diarrhea. Discussed with general surgery PA and Order placed for fecal management system. Vital signs reviewed and stable. General: Nontoxic, no distress and appears stated age. Derm: Skin warm and dry, normal coloration for ethnicity. Patient has mild swelling with no noted drainage from the area of abscess directly behind scrotum to perineal area. Head: Atraumatic, normocephalic and symmetric. Eyes: EOMs intact, no lid lag, and anicteric sclera Mouth: no lip lesions, mucus membranes moist Cardiovascular: regular rate and rhythm with normal S1S2, systolic murmur, positive posterior tibial pulses bilaterally, and cap refill < 2 seconds. Lungs: Respirations even, regular, and unlabored on room air. Lungs CTA bilate rally, no rhonchi, no rales, no wheezing, and no accessory muscle usage. Abdominal: Obese distended abdomen, nontender to palpation, no guarding, no appreciable organomegaly Ext: ROM intact. No gross muscle atrophy, no contractures. Bilateral lower extremity venous discoloration and swelling. Left tavares with small area of sloughing, increased redness and warmth. Neuro: Speech clear, face symmetrical and CN II-XII grossly intact with no noted focal neuro deficits Psych: Alert and oriented to person, place, time, and situation. Appropriate and pleasant affect. Assessment and Plan of Care: Perirectal abscess -Consult placed to general surgeon, Dr. Bauman and after evaluation of patient he reports plans to take patient to OR for incision and drainage of Perirectal abscess tomorrow. -Imaging at [facility] which per documentation on chart showed no free gas in the area of the bed with no concerns of Bhavna's. Imaging reports are not available for review at this time. -Patient to continue with Unasyn 3 g every 6 hours. -Symptomatic care and pain management -Continue to to turn every 2 hours and as needed to offload from perineal region. Persistent diarrhea -Stool culture -After discussion with general surgery PA, Order placed for fecal management system to prevent further contamination/irritation of perirectal abscess Left lower extremity cellulitis -Vancomycin 1750 mg every 24 hours. Follow up on vancomycin troph and renal function. -We will follow up on wound culture. Type II uzq-tyodtuu-pqkjbhpmy diabetes mellitus with hyperglycemia -Hold glipizide and Trulicity. Patient placed on glycemic protocol with NovoLog sliding scale. Current blood glucose 255. -We will follow up on hemoglobin A1c. Hypertension Hyperlipidemia Peripheral vascular disease of bilateral lower extremities -Monitor vital signs and continue daily medication regimen with losartan 25 mg daily, metoprolol 50 mg daily, and simvastatin 20 mg daily. CODE STATUS: Full code DVT prophylaxis: Heparin Discussed with: Patient, RN, general surgery PA and general surgeon Anticipated discharge date: Clinical course to determine, scheduled for I&D tomorrow Anticipated discharge place: Home Patient was seen independently by Nurse Pracitioner. This document was prepared using [employer] dictation software. Please allow for errors in gate shear operator, while rare they do occur. I reviewed the documentation as provided by the KAYLA above, who is the original author of this note. I agree with the documented assessment and plan, with the following changes: none Objective - Vital Signs Vital signs: Vital Signs Temp 98.6 F 08/24/22 07:51 Pulse 80 08/24/22 07:51 Resp 18 08/24/22 07:51 BP 134/68 08/24/22 07:51 Pulse Ox 95 08/24/22 07:51 FiO2 Intake & Output 08/23/22 08/24/22 08/24/22 18:59 06:59 18:59 Intake Total 200 Output Total 100 Balance -100 200 Intake: Intake, IV Titration 200 Amount Ampicillin-Sulbactam 3 gm 200 In Sodium Chloride 0.9% 100 ml @ 200 mls/hr IVPB Q6HR [facility] Rx#:[id number] Output: Urine 100 Other: Voiding Method Toilet # Voids 2 5 # Bowel Movements 3 5 - Labs CBC & Chem 7: 08/25/22 06:11 08/25/22 06:11 Labs: Abnormal Lab Results - Last 24 Hours (Table) 08/23/22 08/23/22 08/23/22 Range/Units 11:24 16:34 20:52 Sodium (137-145) mmol/L BUN (9-20) mg/dL Creatinine (0.66-1.25) mg/dL Glucose (74-99) mg/dL POC Glucose (mg/dL) 212 H 207 H 224 H (70-110) mg/dL Calcium (8.4-10.2) mg/dL 08/24/22 08/24/22 Range/Units 06:18 06:39 Sodium 136 L (137-145) mmol/L BUN 25 H (9-20) mg/dL Creatinine 1.35 H (0.66-1.25) mg/dL Glucose 180 H (74-99) mg/dL POC Glucose (mg/dL) 213 H (70-110) mg/dL Calcium 8.1 L (8.4-10.2) mg/dL Microbiology - Last 24 Hours (Table) 08/23/22 02:49 Wound Culture - Preliminary Other - Other
[2022-08-24 15:32] VITALS: BMI 39.1
[2022-08-24 16:44] LABS: Glucose,Whole Blood 249 mg/dL (70-110)
[2022-08-24 21:51] LABS: Glucose,Whole Blood 227 mg/dL (70-110)
[2022-08-25] MEDS: HEPARIN SODIUM,PORCINE/PF 5,000 UNIT/0.5 ML SYRINGE SQ SCH ×3 (00:14→12:53)
[2022-08-25] MEDS: AMPICILLIN-SULBACTAM 3 GM in SODIUM CHLORIDE 0.9% 100 ML IVPB SCH ×4 (00:14→17:45)
[2022-08-25] MEDS: BENZONATATE 100 MG CAP PO PRN ×2 (02:42→21:54)
[2022-08-25 06:13] LABS: Glucose,Whole Blood 194 mg/dL (70-110)
[2022-08-25] MEDS: VANCOMYCIN 1,750 MG in SODIUM CHLORIDE 0.9% 500 ML 500 ML IVPB SCH (06:29)
[2022-08-25] MEDS: INSULIN ASPART (NovoLOG) 100 UNIT/ML VIAL SQ SCH ×4 (06:29→21:54)
[2022-08-25 07:10] LABS: Basophils % (A) 1 %; Eosinophils # (A) 0.3 k/uL (0-0.7); Eosinophils % (A) 4 %; HCT 42.6 % (39.0-53.0); Lymphocytes # (A) 0.9 k/uL (1.0-4.8); Lymphocytes % (A) 14 %; MCH 32.4 pg (25.0-35.0); MCHC 32.9 g/dL (31.0-37.0); MCV 98.3 fL (80.0-100.0); Mean Platelet Volume 7.5; Monocytes # (A) 0.5 k/uL (0-1.0); Monocytes % (A) 7 %; Neutrophils # (A) 4.6 k/uL (1.3-7.7); Neutrophils % (A) 73 %; Platelet Count 168 k/uL (150-450); RBC 4.33 m/uL (4.30-5.90); RDW 12.8 % (11.5-15.5); WBC 6.3 k/uL (3.8-10.6)
[2022-08-25] MEDS ORDERED: HYDROmorphone 0.5 MG/0.5 ML SYRINGE IVP PRN (07:14)
[2022-08-25] MEDS ORDERED: ONDANSETRON 4 MG/2 ML VIAL IVP ONE ×2 (07:14→12:10)
[2022-08-25 07:26] LABS: African American GFR (CKD) 59 (>60 ml/min/1.73 sqM); Anion Gap 7 mmol/L; Blood Urea Nitrogen 19 mg/dL (9-20); Calcium 8.1 mg/dL (8.4-10.2); Carbon Dioxide 26 mmol/L (22-30); Chloride 105 mmol/L (98-107); Glucose 191 mg/dL (74-99); Non-African American GFR(CKD) 51 (>60 ml/min/1.73 sqM); Potassium 3.8 mmol/L (3.5-5.1); Sodium 138 mmol/L (137-145)
[2022-08-25] MEDS: METOPROLOL SUCCINATE (ER) 50 MG TAB.ER.24H PO SCH (08:54)
[2022-08-25] MEDS: LOSARTAN 25 MG TAB PO SCH (08:54)
[2022-08-25] MEDS: ATORVASTATIN 10 MG TAB PO SCH (08:54)
[2022-08-25 11:07] LABS: Glucose,Whole Blood 189 mg/dL (70-110)
[2022-08-25] MEDS ORDERED: ACETAMINOPHEN TAB 500 MG TAB ONE (12:01)
[2022-08-25] MEDS ORDERED: LACTATED RINGERS 1,000 ML IV ONE (12:08)
[2022-08-25] MEDS ORDERED: DEXAMETHASONE SOD PHOSPHATE 4 MG/ML 1 ML VIAL IVP ONE (12:10)
--- NOTE | 2022-08-25 12:25 | CDI ---
Documentation Clarification Form Date: From: Kenya Michaels Phone: [phone] Admit Date: 08/23/2022 02:53:00 AM Patient Name: Tom Krishnamurthy Visit Number: [id number] Discharge Date: ATTENTION: The Clinical Documentation Specialists (CDI) and [facility] Coding Staff appreciate your assistance in clarifying documentation. Please respond to the clarification below the line at the bottom and electronically sign. The CDI & [facility] Coding staff will review the response and follow-up if needed. Please note: Queries are made part of the Legal Health Record. If you have any questions, please contact the author of this message via ITS. Dr. Lucina Allen Cellulitis is documented in the Admission H&P on 08/23. Additional clarification regarding the type of cellulitis is requested. History/risk factors: "89 year old male with DM , hypertension - patient transferred from [facility] for urologic evaluation of recurrent perineal abscess" - Per Admission H&P on 08/23 Clinical Indicators: "bilateral chronic changes in his legs, he claims that these has been going on for years, where he develops blisters that bursts all the time. with chronic reddness and discomfort " - Per Admission H&P "peripheral vascular disease of bilateral lower extremities" "Type II lur-obmalyj-ohskhrbnm diabetes mellitus with hyperglycemia" "Current blood glucose 255" - Per Progress Note on 08/23 Glucose Per MAY 30 - 229, 249, 227 08/25 - 191, 194, 189 Treatment: Per Admission H&P on 08/23 "vanco dosing by pharmacy follow up cultures insulin sliding scale " Please clarify the etiology of the cellulitis, if known: [ ] Cellulitis is a diabetic skin complication [ ] Cellulitis is not a diabetic skin complication [ ] Other, please specify: [ X] Unable to determine MTDD
[2022-08-25] MEDS ORDERED: ACETAMINOPHEN TAB 500 MG TAB PO ONE (12:53)
[2022-08-25] MEDS ORDERED: PROPOFOL 10 MG/ML 20 ML VIAL IV ONE (13:12)
[2022-08-25] MEDS ORDERED: fentaNYL (PF) 50 MCG/ML 2 ML AMP ONE (13:12)
[2022-08-25] MEDS ORDERED: SUCCINYLCHOLINE CHLORIDE 200 MG/10 ML VIAL IV ONE (13:12)
[2022-08-25] MEDS ORDERED: PHENYLEPHRINE-0.9% NACL SYG 1,000 MCG/10 ML SYRINGE ONE (13:12)
[2022-08-25] MEDS ORDERED: LIDOCAINE 2% INJ 20 MG/ML (2 ML VIAL) ONE (13:12)
[2022-08-25] MEDS ORDERED: MIDAZOLAM 2 MG/2 ML VIAL ONE (13:12)
[2022-08-25] MEDS ORDERED: BUPIVACAINE (PF) 0.25% 30 ML VIAL SQ ONE (13:35)
[2022-08-25] MEDS ORDERED: HYDROmorphone 1 MG/ML 1 ML SYRINGE IVP PRN (13:44)
--- NOTE | 2022-08-25 13:44 | P.OP ---
Date of Procedure: 08/25/22 Preoperative Diagnosis: Perirectal abscess Postoperative Diagnosis: Perirectal abscess Procedure(s) Performed: Incision and drainage of perirectal abscess Anesthesia: MARISOL Surgeon: Jacques Bauman Estimated Blood Loss (ml): 5 Pathology: none sent Condition: stable Disposition: PACU Description of Procedure: The patient's placed on the operative table in the prone jackknife position after receiving general anesthesia. His perineum was prepped and draped in sterile fashion. Patient had a draining sinus over the perineal body. This was probed. There was a cavity below this. The skin was incised over top of this. There was a abscess cavity measuring approximately 4 x 5 cm. The abscess had been previously drained. The area was opened with electrocautery. And then was packed with wet-to-dry Kerlix. Patient tolerated the procedure well. He was sent to recovery room in stable condition.
[2022-08-25 16:32] LABS: Glucose,Whole Blood 228 mg/dL (70-110)
--- NOTE | 2022-08-25 17:20 | P.PN ---
Subjective Progress Note Date: 08/25/22 Patient seen and examined at bedside. Patient denies chest pain, shortness breath, nausea, vomiting, fever or chills. Patient was scheduled for an I&D today. Objective - Vital Signs Vital signs: Vital Signs Temp 97.2 F L 08/25/22 13:48 Pulse 83 08/25/22 16:00 Resp 18 08/25/22 14:18 BP 139/76 08/25/22 16:00 Pulse Ox 93 L 08/25/22 16:00 FiO2 Intake & Output 08/24/22 08/25/22 08/25/22 18:59 06:59 18:59 Intake Total 300 Output Total 5 Balance 295 Weight 113.398 kg Intake: IV 300 Output: Estimated Blood Loss 5 Other: Voiding Method Toilet Toilet Toilet # Voids 2 3 # Bowel Movements 6 3 - Exam General: [non toxic], [no distress], [appears at stated age] Derm: [warm], [dry] Head: [atraumatic], [normocephalic], [symmetric] Eyes: [EOMI], [no lid lag], [anicteric sclera] Mouth: [no lip lesion], [mucus membranes moist] Cardiovascular: [S1S2 reg], [no murmur], [positive posterior tibial pulse bilateral], Lungs: [CTA bilateral], [no rhonchi, no rales] , [no accessory muscle use] Abdominal: [soft], [ nontender to palpation], [no guarding], [no appreciable organomegaly] Ext: [no gross muscle atrophy], [no edema], [no contractures] Neuro: [ CN II-XI grossly intact], [no focal neuro deficits] Psych: [Alert], [oriented], [appropriate affect] - Labs CBC & Chem 7: 08/25/22 06:11 08/25/22 06:11 Labs: Abnormal Lab Results - Last 24 Hours (Table) 08/24/22 08/25/22 08/25/22 Range/Units 21:46 06:11 06:11 Lymphocytes # 0.9 L (1.0-4.8) k/uL Glucose 191 H (74-99) mg/dL POC Glucose (mg/dL) 227 H (70-110) mg/dL Calcium 8.1 L (8.4-10.2) mg/dL 08/25/22 08/25/22 08/25/22 Range/Units 06:12 11:05 16:31 Lymphocytes # (1.0-4.8) k/uL Glucose (74-99) mg/dL POC Glucose (mg/dL) 194 H 189 H 228 H (70-110) mg/dL Calcium (8.4-10.2) mg/dL Microbiology - Last 24 Hours (Table) 08/23/22 02:44 Blood Culture - Preliminary Blood 08/23/22 03:02 Blood Culture - Preliminary Blood 08/23/22 02:49 Gram Stain - Final Other - Other Wound Culture - Final Escherichia coli 08/25/22 00:00 Stool Culture - Preliminary Stool Assessment and Plan Assessment: Perirectal abscess - Gen Surg Dr. Bauman to take patient to the OR for incision and drainage of Perirectal abscess today -Imaging at [facility] which per documentation on chart showed no free gas in the area of the bed with no concerns of Bhavna's. Imaging reports are not available for review at this time. -Patient to continue with Unasyn 3 g every 6 hours. -Symptomatic care and pain management -Continue to to turn every 2 hours and as needed to offload from perineal region. Persistent diarrhea -Stool culture. C. dif negative -After discussion with general surgery PA, Order placed for fecal management system to prevent further contamination/irritation of perirectal abscess Left lower extremity cellulitis -Vancomycin 1750 mg every 24 hours. Follow up on vancomycin troph and renal function. -We will follow up on wound culture. 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 Patient placed on glycemic protocol with NovoLog sliding scale. Current blood glucose 255. -hemoglobin A1c at 9.7% -Will add long acting insulin 7 units sub q qHS Hypertension Hyperlipidemia Peripheral vascular disease of bilateral lower extremities -Monitor vital signs and continue daily medication regimen with losartan 25 mg daily, metoprolol 50 mg daily, and simvastatin 20 mg daily. CODE STATUS: Full code DVT prophylaxis: Heparin Discussed with: Patient, RN, general surgery PA and general surgeon Anticipated discharge date: Clinical course to determine, scheduled for I&D today Anticipated discharge place: Home
[2022-08-25] MEDS: LACTATED RINGERS 1,000 ML IV SCH (19:42)
[2022-08-25] MEDS ORDERED: INSULIN DETEMIR (LEVEMIR) 100 UNIT/ML SYR SQ SCH (21:00)
[2022-08-25 21:06] LABS: Glucose,Whole Blood 383 mg/dL (70-110)
[2022-08-26] MEDS: HEPARIN SODIUM,PORCINE/PF 5,000 UNIT/0.5 ML SYRINGE SQ SCH ×3 (00:12→17:35)
[2022-08-26] MEDS: AMPICILLIN-SULBACTAM 3 GM in SODIUM CHLORIDE 0.9% 100 ML IVPB SCH ×2 (00:12→05:37)
[2022-08-26] MEDS ORDERED: VANCOMYCIN TROUGH DUE 1 EACH MISC MISCELLANE ONE (05:00)
[2022-08-26 06:05] LABS: Glucose,Whole Blood 231 mg/dL (70-110)
[2022-08-26] MEDS: VANCOMYCIN 1,750 MG in SODIUM CHLORIDE 0.9% 500 ML 500 ML IVPB SCH (06:30)
[2022-08-26] MEDS: INSULIN ASPART (NovoLOG) 100 UNIT/ML VIAL SQ SCH ×5 (06:42→21:38)
[2022-08-26] MEDS: LACTATED RINGERS 1,000 ML IV SCH (06:44)
[2022-08-26 07:49] LABS: ALT 22 U/L (4-49); AST 25 U/L (17-59); African American GFR (CKD) 49 (>60 ml/min/1.73 sqM); Albumin 2.7 g/dL (3.5-5.0); Alkaline Phosphatase 71 U/L (38-126); Anion Gap 8 mmol/L; Blood Urea Nitrogen 22 mg/dL (9-20); Calcium 8.3 mg/dL (8.4-10.2); Carbon Dioxide 25 mmol/L (22-30); Chloride 102 mmol/L (98-107); Globulin 2.7 g/dL; Glucose 246 mg/dL (74-99); Non-African American GFR(CKD) 43 (>60 ml/min/1.73 sqM); Potassium 4.2 mmol/L (3.5-5.1); Sodium 135 mmol/L (137-145); Total Bilirubin 0.4 mg/dL (0.2-1.3); Total Protein 5.4 g/dL (6.3-8.2)
[2022-08-26] MEDS ORDERED: HYDROcodone/APAP 5-325MG 1 EACH TAB PO PRN (07:49)
[2022-08-26] MEDS: LOSARTAN 25 MG TAB PO SCH (08:28)
[2022-08-26] MEDS: ATORVASTATIN 10 MG TAB PO SCH (08:28)
[2022-08-26] MEDS: METOPROLOL SUCCINATE (ER) 50 MG TAB.ER.24H PO SCH (08:28)
[2022-08-26 10:53] LABS: Basophils # (A) 0.03 X 10*3/uL (0.00-0.10); Basophils % (A) 0.4 %; Eosinophils # (A) 0.01 X 10*3/uL (0.04-0.35); Eosinophils % (A) 0.1 %; HCT 42.9 % (39.6-50.0); HGB 13.5 g/dL (13.0-17.0); Immature Grans, Automated 0.4 %; Lymphocytes # (A) 0.71 X 10*3/uL (0.90-5.00); Lymphocytes % (A) 8.7 %; MCH 31.1 pg (27.0-32.0); MCHC 31.5 g/dL (32.0-37.0); MCV 98.8 fL (80.0-97.0); Mean Platelet Volume 9.6 fL (9.5-12.2); Monocytes # (A) 0.77 X 10*3/uL (0.20-1.00); Monocytes % (A) 9.4 %; NRBC Per 100 WBC 0 /100 WBCS (0.0-0.0); Neutrophils # (A) 6.62 X 10*3/uL (1.80-7.70); Platelet Count 171 X 10*3/uL (140-440); RBC 4.34 X 10*6/uL (4.40-5.60); RDW 12.8 % (11.5-14.5); WBC 8.17 X 10*3/uL (4.50-10.00)
[2022-08-26 11:54] LABS: Glucose,Whole Blood 255 mg/dL (70-110)
--- NOTE | 2022-08-26 15:25 | P.PN ---
Subjective Progress Note Date: 08/26/22 CHIEF COMPLAINT: Perirectal abscess HISTORY OF PRESENT ILLNESS: Patient is postop day #1 status post incision and drainage of perirectal abscess. Patient reports improvement in his pain. Dressing was changed by nursing staff today. Patient denies any nausea or vomiting. Afebrile. WBC 8.17 medicine service has adjusted antibiotics and they have consulted infectious disease Patient seen and examined with Dr. kirby PHYSICAL EXAM: VITAL SIGNS: Reviewed. GENERAL: Well-developed in no acute distress. ABDOMEN: Soft. Nondistended. Nontender. NEUROLOGIC: Alert and oriented. Cranial nerves II through XII grossly intact. ASSESSMENT: 1. Perirectal abscess status post incision and drainage 2. Diabetes mellitus PLAN: -Consult wound care service -Antibiotics per infectious disease recommendations -Continue local wound care -Patient can be discharged from surgical standpoint once medically cleared Physician Server Engineer note has been reviewed by physician. Signing provider agrees with the documented findings, assessment, and plan of care. Objective - Vital Signs Vital signs: Vital Signs Temp 97.6 F 08/26/22 07:26 Pulse 64 08/26/22 07:26 Resp 17 08/26/22 07:26 BP 117/68 08/26/22 07:26 Pulse Ox 93 L 08/26/22 07:26 FiO2 Intake & Output 08/25/22 08/26/22 08/26/22 18:59 06:59 18:59 Intake Total 300 200 Output Total 5 50 Balance 295 150 Intake: IV 300 Intake, IV Titration 200 Amount Ampicillin-Sulbactam 3 gm 200 In Sodium Chloride 0.9% 100 ml @ 200 mls/hr IVPB Q6HR [facility] Rx#:[id number] Output: Urine 50 Estimated Blood Loss 5 Other: Voiding Method Toilet Urinal # Voids 3 1 # Bowel Movements 1 - Labs CBC & Chem 7: 08/26/22 06:13 08/26/22 06:13 Labs: Abnormal Lab Results - Last 24 Hours (Table) 08/25/22 08/25/22 08/26/22 Range/Units 16:31 21:00 05:54 RBC (4.40-5.60) X 10*6/uL MCV (80.0-97.0) fL MCHC (32.0-37.0) g/dL Lymphocytes # (0.90-5.00) X 10*3/uL Eosinophils # (0.04-0.35) X 10*3/uL Sodium (137-145) mmol/L BUN (9-20) mg/dL Creatinine (0.66-1.25) mg/dL Glucose (74-99) mg/dL POC Glucose (mg/dL) 228 H 383 H 231 H (70-110) mg/dL Calcium (8.4-10.2) mg/dL Total Protein (6.3-8.2) g/dL Albumin (3.5-5.0) g/dL 08/26/22 08/26/22 08/26/22 Range/Units 06:13 06:13 11:52 RBC 4.34 L (4.40-5.60) X 10*6/uL MCV 98.8 H (80.0-97.0) fL MCHC 31.5 L (32.0-37.0) g/dL Lymphocytes # 0.71 L (0.90-5.00) X 10*3/uL Eosinophils # 0.01 L (0.04-0.35) X 10*3/uL Sodium 135 L (137-145) mmol/L BUN 22 H (9-20) mg/dL Creatinine 1.44 H (0.66-1.25) mg/dL Glucose 246 H (74-99) mg/dL POC Glucose (mg/dL) 255 H (70-110) mg/dL Calcium 8.3 L (8.4-10.2) mg/dL Total Protein 5.4 L (6.3-8.2) g/dL Albumin 2.7 L (3.5-5.0) g/dL Microbiology - Last 24 Hours (Table) 08/23/22 02:44 Blood Culture - Preliminary Blood 08/23/22 03:02 Blood Culture - Preliminary Blood
[2022-08-26 16:30] LABS: Glucose,Whole Blood 494 mg/dL (70-110)
--- NOTE | 2022-08-26 17:28 | P.PN ---
Subjective Progress Note Date: 08/26/22 Hospital course: Patient is a very pleasant 89-year-old male with a past medical history of hypertension, hyperlipidemia, peripheral vascular disease of bilateral lower extremities, and hha-fcgqhsr-crgevhonh diabetes mellitus. He presented to the emergency department as a transfer from [facility] to be evaluated by urologist secondary to perineal abscess. Imaging was completed at [facility] which per documentation in chart showed no free gas in the area of the bed with no concerns of Bhavna's. Imaging reports are not available for review at this time. Disc was sent to radiology department to be uploaded for review. Patient reports he initially presented to [facility] secondary to diarrhea described as loose and mucousy. He denies having any melena or hematochezia. Patient was admitted under our services for evaluation of Perineal abscess with consultation to urology. Underwent evaluation by urologist, Dr. Dang recommending general surgery consult. Consult placed to general surgeon, Dr. Bauman whom took pt to OR for incision and drainage of Perirectal abscess on Tuesday08/25/22. Physical exam: Patient seen and fully evaluated at bedside. He is postop day 1 status post I&D of perirectal abscess. Patient sitting up in a chair at bedside. Vital signs reviewed and stable. General: Nontoxic, no distress and appears stated age. Derm: Skin warm and dry, normal coloration for ethnicity. Patient has mild swe lling with no noted drainage from the area of abscess directly behind scrotum to perineal area. Head: Atraumatic, normocephalic and symmetric. Eyes: EOMs intact, no lid lag, and anicteric sclera Mouth: no lip lesions, mucus membranes moist Cardiovascular: regular rate and rhythm with normal S1S2, systolic murmur, positive posterior tibial pulses bilaterally, and cap refill < 2 seconds. Lungs: Respirations even, regular, and unlabored on room air. Lungs CTA bilaterally, no rhonchi, no rales, no wheezing, and no accessory muscle usage. Abdominal: Obese distended abdomen, nontender to palpation, no guarding, no appreciable organomegaly Ext: ROM intact. No gross muscle atrophy, no contractures. Bilateral lower extremity venous discoloration and swelling. Left tavares with small area of sloughing, increased redness and warmth. Neuro: Speech clear, face symmetrical and CN II-XII grossly intact with no noted focal neuro deficits Psych: Alert and oriented to person, place, time, and situation. Appropriate and pleasant affect. Assessment and Plan of Care: Perirectal abscess -Consult placed to general surgeon, Dr. Bauman and after evaluation of patient he reports plans to take patient to OR for incision and drainage of Perirectal abscess tomorrow. -Imaging at [facility] which per documentation on chart showed no free gas in the area of the bed with no concerns of Bhavna's. Imaging reports are not available for review at this time. -IV antibiotics changed to Zosyn 3.375 g every 8 hours -Symptomatic care and pain management -Continue to to turn every 2 hours and as needed to offload from perineal region. Type II [id number]-zobkphmil diabetes mellitus with hyperglycemia -Continue to hold Glipizide and Trulicity. -Increase Levemir to 15 units nightly and added on fixed dose of NovoLog 3 units 3 times daily with meals in addition to glycemic protocol with NovoLog sliding scale. Persistent diarrhea -C. diff is negative. Stool culture -Per documentation in chart, episodes of diarrhea are decreasing in frequency. Left lower extremity cellulitis -Wound culture of left lower extremity positive for E. coli resistant to ampicillin, ciprofloxacin, Levaquin, tetracycline, and Bactrim -Patient started on Zosyn at this time. Hypertension Hyperlipidemia Peripheral vascular disease of bilateral lower extremities -Monitor vital signs and continue daily medication regimen with losartan 25 mg daily, metoprolol 50 mg daily, and simvastatin 20 mg daily. CODE STATUS: Full code DVT prophylaxis: Heparin Discussed with: Patient, RN, and general surgery PA Anticipated discharge date: Clinical course to determine Anticipated discharge place: Home Patient was seen independently by Nurse Pracitioner. This document was prepared using [employer] dictation software. Please allow for errors in mlt, while rare they do occur. I reviewed the documentation as provided by the KAYLA above, who is the original author of this note. I agree with the documented assessment and plan, with the following changes: none Objective - Vital Signs Vital signs: Vital Signs Temp 97.6 F 08/26/22 07:26 Pulse 64 08/26/22 07:26 Resp 17 08/26/22 07:26 BP 117/68 08/26/22 07:26 Pulse Ox 93 L 08/26/22 07:26 FiO2 Intake & Output 08/25/22 08/26/22 08/26/22 18:59 06:59 18:59 Intake Total 300 200 Output Total 5 50 Balance 295 150 Intake: IV 300 Intake, IV Titration 200 Amount Ampicillin-Sulbactam 3 gm 200 In Sodium Chloride 0.9% 100 ml @ 200 mls/hr IVPB Q6HR [facility] Rx#:[id number] Output: Urine 50 Estimated Blood Loss 5 Other: Voiding Method Toilet Urinal # Voids 3 1 # Bowel Movements 1 - Labs CBC & Chem 7: 08/26/22 06:13 08/26/22 06:13 Labs: Abnormal Lab Results - Last 24 Hours (Table) 08/25/22 08/25/22 08/25/22 Range/Units 11:05 16:31 21:00 Sodium (137-145) mmol/L BUN (9-20) mg/dL Creatinine (0.66-1.25) mg/dL Glucose (74-99) mg/dL POC Glucose (mg/dL) 189 H 228 H 383 H (70-110) mg/dL Calcium (8.4-10.2) mg/dL Total Protein (6.3-8.2) g/dL Albumin (3.5-5.0) g/dL 08/26/22 08/26/22 Range/Units 05:54 06:13 Sodium 135 L (137-145) mmol/L BUN 22 H (9-20) mg/dL Creatinine 1.44 H (0.66-1.25) mg/dL Glucose 246 H (74-99) mg/dL POC Glucose (mg/dL) 231 H (70-110) mg/dL Calcium 8.3 L (8.4-10.2) mg/dL Total Protein 5.4 L (6.3-8.2) g/dL Albumin 2.7 L (3.5-5.0) g/dL Microbiology - Last 24 Hours (Table) 08/23/22 02:44 Blood Culture - Preliminary Blood 08/23/22 03:02 Blood Culture - Preliminary Blood 08/23/22 02:49 Gram Stain - Final Other - Other Wound Culture - Final Escherichia coli 08/25/22 00:00 Stool Culture - Preliminary Stool
[2022-08-26] MEDS: PIPERACILLIN-TAZOBACTAM 3.375 GM in SODIUM CHLORIDE 0.9% 100 ML IVPB SCH (18:15)
[2022-08-26 20:13] LABS: Glucose,Whole Blood 248 mg/dL (70-110)
--- NOTE | 2022-08-26 20:18 | P.CONS ---
History of Present Illness - Reason for Consult Consult date: 08/26/22 Perirectal abscess Requesting physician: Christopher Nix - Chief Complaint Pain and swelling to the perineum x few days - History of Present Illness Patient is a 89-year-old male presenting to the hospital 3 days ago on 08/23/[address] from [facility] for further treatment of scrotal edema and abscess of the perineum there was draining some seropurulent secretions patient was evaluated by general surgery yesterday afternoon and the patient is s/p incision and drainage of the perirectal abscess patient on presentation to the hospital was afebrile and no fever has been recorded during this hospital stay patient did have a 20 21,000 with a left shift subsequently normalized. BUN and creatinine has been mildly elevated liver enzymes normal patient did have cultures obtained which did grew E. coli with intermediate sensitivity to Unasyn patient was treated with the vancomycin that has been discontinued started on Zosyn infectious disease was consulted for further management of antibiotic therapy, on today's evaluation that is 08/27/2019, the patient denies having any fever or any chills, patient is breathing comfortably currently on room air no chest pain or shortness of occasional cough no abdominal pain no nausea vomiting and no diarrhea Review of Systems Positive point and negatives has been mentioned in the HPI, complete review of systems was performed and all other systems are negative Past Medical History Past Medical History: Diabetes Mellitus, Hyperlipidemia, Hypertension, Vascular Disorder History of Any Multi-Drug Resistant Organisms: None Reported Past Anesthesia/Blood Transfusion Reactions: No Reported Reaction Past Psychological History: No Psychological Hx Reported Smoking Status: Former smoker Past Alcohol Use History: None Reported Past Drug Use History: None Reported Medications and Allergies Home Medications Medication Instructions Recorded Confirmed Type Losartan [Cozaar] 25 mg PO DAILY 08/05/21 08/23/22 History Metoprolol Succinate (ER) [Toprol 50 mg PO DAILY 08/05/21 08/23/22 History XL] Simvastatin [Zocor] 20 mg PO DAILY 08/05/21 08/23/22 History Dulaglutide [Trulicity] 3 mg SQ Q7D 08/23/22 08/23/22 History Multivit-Min/FA/Lycopen/Lutein 1 tab PO DAILY 08/23/22 08/23/22 History [Centrum Silver Men Tablet] glipiZIDE XL [Glucotrol XL] 20 mg PO DAILY 08/23/22 08/23/22 History cefUROXime axetiL [Ceftin] 500 mg PO BID 10 Days #20 tab 08/27/22 Rx metroNIDAZOLE [Flagyl] 500 mg PO TID #30 tab 08/27/22 Rx Allergies Allergy/AdvReac Type Severity Reaction Status Date / Time Sulfa (Sulfonamide Allergy Rash/Hives Verified 08/23/22 12:13 Antibiotics) Physical Exam Vitals: Vital Signs Temp Pulse Resp BP Pulse Ox 08/26/22 07:26 97.6 F 64 17 117/68 93 L 08/26/22 02:00 98.6 F 86 16 123/66 95 08/25/22 20:00 98.7 F 93 16 125/55 92 L 08/25/22 16:00 83 139/76 93 L 08/25/22 15:45 72 123/71 94 L 08/25/22 15:30 81 135/77 93 L 08/25/22 15:15 82 127/77 96 08/25/22 15:00 81 143/81 95 08/25/22 14:18 81 18 143/72 97 08/25/22 14:03 86 20 133/71 97 08/25/22 13:48 97.2 F L 89 18 154/65 94 L 08/25/22 11:55 96.8 F L 83 18 132/66 95 Intake and Output 08/25/22 08/26/22 08/26/22 22:59 06:59 14:59 Intake Total 200 Output Total 50 Balance 150 Intake: Intake, IV Titration 200 Amount Ampicillin-Sulbactam 3 gm 200 In Sodium Chloride 0.9% 100 ml @ 200 mls/hr IVPB Q6HR [facility] Rx#:[id number] Output: Urine 50 Other: Voiding Method Urinal # Voids 3 1 # Bowel Movements 1 GENERAL DESCRIPTION: Elderly male up in the chair, no distress. No tachypnea or accessory muscle of respiration use. HEENT: Shows Pallor , no scleral icterus. Oral mucous membrane is dry. NECK: Trachea central, no thyromegaly. LUNGS: Unlabored breathing. Clear to auscultation anteriorly. HEART: S1, S2, regular rate and rhythm. No loud murmur ABDOMEN: Soft, mild distention but no tenderness EXTREMITIES: No edema of feet. SKIN: No rash, no masses palpable. NEUROLOGICAL: The patient is awake, alert, oriented x3, mood and affect normal. Results CBC & Chem 7: 08/26/22 06:13 08/26/22 06:13 Labs: Abnormal Lab Results - Last 24 Hours (Table) 08/25/22 08/25/22 08/26/22 Range/Units 16:31 21:00 05:54 RBC (4.40-5.60) X 10*6/uL MCV (80.0-97.0) fL MCHC (32.0-37.0) g/dL Lymphocytes # (0.90-5.00) X 10*3/uL Eosinophils # (0.04-0.35) X 10*3/uL Sodium (137-145) mmol/L BUN (9-20) mg/dL Creatinine (0.66-1.25) mg/dL Glucose (74-99) mg/dL POC Glucose (mg/dL) 228 H 383 H 231 H (70-110) mg/dL Calcium (8.4-10.2) mg/dL Total Protein (6.3-8.2) g/dL Albumin (3.5-5.0) g/dL 08/26/22 08/26/22 Range/Units 06:13 06:13 RBC 4.34 L (4.40-5.60) X 10*6/uL MCV 98.8 H (80.0-97.0) fL MCHC 31.5 L (32.0-37.0) g/dL Lymphocytes # 0.71 L (0.90-5.00) X 10*3/uL Eosinophils # 0.01 L (0.04-0.35) X 10*3/uL Sodium 135 L (137-145) mmol/L BUN 22 H (9-20) mg/dL Creatinine 1.44 H (0.66-1.25) mg/dL Glucose 246 H (74-99) mg/dL POC Glucose (mg/dL) (70-110) mg/dL Calcium 8.3 L (8.4-10.2) mg/dL Total Protein 5.4 L (6.3-8.2) g/dL Albumin 2.7 L (3.5-5.0) g/dL Microbiology - Last 24 Hours (Table) 08/23/22 02:44 Blood Culture - Preliminary Blood 08/23/22 03:02 Blood Culture - Preliminary Blood 08/23/22 02:49 Gram Stain - Final Other - Other Wound Culture - Final Escherichia coli 08/25/22 00:00 Stool Culture - Preliminary Stool Assessment and Plan (1) Perineal abscess Current Visit: Yes Status: Acute Code(s): L02.215 - CUTANEOUS ABSCESS OF PERINEUM SNOMED Code(s): 30342129 Plan: 1patient was in the hospital with perirectal abscess in this patient status post surgical drainage on 08/25/2022 with a deep cultures currently pending patient initial cultures currently growing E. coli with intermediate sensitivity to Unasyn 2-agree with switch antibiotic therapy to Zosyn 3.375 g every 8 hours, depending on his clinical response the next 24 to 48-hour will determine his discharge antibiotics whether IV or oral We will follow on clinical condition and cultures to further adjust medication if needed Thank you for this consultation we will follow the patient along with you Time with Patient: Greater than 30
[2022-08-26] MEDS ORDERED: INSULIN DETEMIR (LEVEMIR) 100 UNIT/ML SYR SQ SCH (21:00)
[2022-08-27] MEDS: HEPARIN SODIUM,PORCINE/PF 5,000 UNIT/0.5 ML SYRINGE SQ SCH ×2 (00:42→08:34)
[2022-08-27] MEDS: PIPERACILLIN-TAZOBACTAM 3.375 GM in SODIUM CHLORIDE 0.9% 100 ML IVPB SCH ×2 (00:42→10:03)
[2022-08-27 01:59] LABS: Glucose,Whole Blood 91 mg/dL (70-110)
[2022-08-27 05:52] LABS: Glucose,Whole Blood 120 mg/dL (70-110)
[2022-08-27] MEDS: LACTATED RINGERS 1,000 ML IV SCH (06:23)
[2022-08-27] MEDS: INSULIN ASPART (NovoLOG) 100 UNIT/ML VIAL SQ SCH ×4 (06:47→12:19)
[2022-08-27] MEDS: ATORVASTATIN 10 MG TAB PO SCH (08:34)
[2022-08-27] MEDS: METOPROLOL SUCCINATE (ER) 50 MG TAB.ER.24H PO SCH (08:34)
[2022-08-27] MEDS: LOSARTAN 25 MG TAB PO SCH (08:34)
--- NOTE | 2022-08-27 09:14 | P.CONS ---
History of Present Illness - Reason for Consult Consult date: 08/27/22 wound care - History of Present Illness This is an 89-year-old patient being seen on [address]. for a perirectal abscess post I&D. Patient has past medical history significant for diabetes, hyperlipidemia, hypertension and vascular disorder patient is a former smoker. Patient was transferred from [facility] where he underwent an I&D of a perirectal abscess. Patient states the perirectal abscesses been there and it comes and goes. He has a large amount of purulent drainage prior to the I&D. Abscess cavity measures approximately 4 x 5 x 3 cm. Patient states that he does not want to see wound care nor does he want to have any dressings applied to the site because it is uncomfortable to sit. He is agreeable to utilize a ointment. Review Of Systems: Constitutional: No fever, no chills, no night sweats. No weight change. No weakness, fatigue or lethargy. No daytime sleepiness. Integumentary:reports wounds, no lesions. No rash or pruritus. No unusual bruising. No change in hair or nails. Physical exam: General Appearance: Alert, cooperative, no distress, appears stated age. Skin: See HPI all other Skin color, texture, tugor normal, no rashes or lesions. Neurologic: Alert oriented x3 Assessment: 1. Non-pressure ulcer with fatty layer exposure other site 2. Abscess post I&D 3. Diabetes with skin ulceration Plan: 1. Apply triad to the perirectal site daily. Patient would benefit from absorp tive silver to the cavity space however patient declined having any dressings to the site. Patient also declined any further advanced wound care and a outpatient setting. If patient changes his mind we are happy to see him in the wound care center upon discharge. Thank you for the consultation any questions to contact the wound care center DNP note has been reviewed and discussed with Dr. Saba and the impression and plan of care has been directed as dictated. Past Medical History Past Medical History: Diabetes Mellitus, Hyperlipidemia, Hypertension, Vascular Disorder History of Any Multi-Drug Resistant Organisms: None Reported Past Anesthesia/Blood Transfusion Reactions: No Reported Reaction Past Psychological History: No Psychological Hx Reported Smoking Status: Former smoker Past Alcohol Use History: None Reported Past Drug Use History: None Reported Medications and Allergies Home Medications Medication Instructions Recorded Confirmed Type Losartan [Cozaar] 25 mg PO DAILY 08/05/21 08/23/22 History Metoprolol Succinate (ER) [Toprol 50 mg PO DAILY 08/05/21 08/23/22 History XL] Simvastatin [Zocor] 20 mg PO DAILY 08/05/21 08/23/22 History Dulaglutide [Trulicity] 3 mg SQ Q7D 08/23/22 08/23/22 History Multivit-Min/FA/Lycopen/Lutein 1 tab PO DAILY 08/23/22 08/23/22 History [Centrum Silver Men Tablet] glipiZIDE XL [Glucotrol Xl] 20 mg PO DAILY 08/23/22 08/23/22 History Allergies Allergy/AdvReac Type Severity Reaction Status Date / Time Sulfa (Sulfonamide Allergy Rash/Hives Verified 08/23/22 12:13 Antibiotics) Physical Exam Vitals: Vital Signs Temp Pulse Resp BP Pulse Ox 08/27/22 07:34 93 L 08/27/22 07:10 97.9 F 67 19 133/77 93 L 08/27/22 00:59 97.7 F 64 16 130/70 93 L 08/26/22 19:02 98.0 F 71 16 120/63 93 L 08/26/22 14:00 98.7 F 74 18 160/74 96 Intake and Output 08/26/22 08/27/22 08/27/22 22:59 06:59 14:59 Output Total 100 Balance -100 Output: Urine 100 Other: Voiding Method Urinal # Voids 4 1 # Bowel Movements 1 Results CBC & Chem 7: 08/26/22 06:13 08/26/22 06:13 Labs: Abnormal Lab Results - Last 24 Hours (Table) 08/26/22 08/26/22 08/26/22 Range/Units 06:13 11:52 16:29 RBC 4.34 L (4.40-5.60) X 10*6/uL MCV 98.8 H (80.0-97.0) fL MCHC 31.5 L (32.0-37.0) g/dL Lymphocytes # 0.71 L (0.90-5.00) X 10*3/uL Eosinophils # 0.01 L (0.04-0.35) X 10*3/uL POC Glucose (mg/dL) 255 H 494 H (70-110) mg/dL 08/26/22 08/27/22 Range/Units 20:11 05:49 RBC (4.40-5.60) X 10*6/uL MCV (80.0-97.0) fL MCHC (32.0-37.0) g/dL Lymphocytes # (0.90-5.00) X 10*3/uL Eosinophils # (0.04-0.35) X 10*3/uL POC Glucose (mg/dL) 248 H 120 H (70-110) mg/dL Microbiology - Last 24 Hours (Table) 08/23/22 02:44 Blood Culture - Preliminary Blood 08/23/22 03:02 Blood Culture - Preliminary Blood 08/25/22 00:00 Stool Culture - Preliminary Stool Cheri albicans Assessment and Plan (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
[2022-08-27] MEDS ORDERED: HYDROPHILIC CREAM 180 GM TUBE TOPICAL SCH (09:30)
[2022-08-27 11:26] LABS: Glucose,Whole Blood 199 mg/dL (70-110)
--- NOTE | 2022-08-27 13:21 | P.PN ---
Subjective Progress Note Date: 08/27/22 CHIEF COMPLAINT: Perirectal abscess HISTORY OF PRESENT ILLNESS: Patient is postop day #2 status post incision and drainage of perirectal abscess. Patient reports improvement in his pain. Patient denies any nausea or vomiting. He was seen by wound care service and infectious disease. Apparently patient wishes not to continue with wound care service outpatient. Afebrile. Patient seen and examined with Dr. kirby PHYSICAL EXAM: VITAL SIGNS: Reviewed. GENERAL: Well-developed in no acute distress. ABDOMEN: Soft. Nondistended. Nontender. NEUROLOGIC: Alert and oriented. Cranial nerves II through XII grossly intact. ASSESSMENT: 1. Perirectal abscess status post incision and drainage 2. Diabetes mellitus PLAN: -Patient can be discharged from surgical standpoint when medically cleared -Discharge antibiotics per infectious disease -Continue local wound care -Recommended for patient to follow up with wound care service outpatient. However, it appears patient is declining outpatient wound care service. Physician Chainstitch Binder note has been reviewed by physician. Signing provider agrees with the documented findings, assessment, and plan of care. Objective - Vital Signs Vital signs: Vital Signs Temp 97.9 F 08/27/22 07:10 Pulse 67 08/27/22 07:10 Resp 19 08/27/22 07:10 BP 133/77 08/27/22 07:10 Pulse Ox 93 L 08/27/22 07:34 FiO2 Intake & Output 08/26/22 08/27/22 08/27/22 18:59 06:59 18:59 Output Total 100 Balance -100 Output: Urine 100 Other: Voiding Method Urinal Urinal # Voids 4 1 # Bowel Movements 1 - Labs CBC & Chem 7: 08/26/22 06:13 08/26/22 06:13 Labs: Abnormal Lab Results - Last 24 Hours (Table) 08/26/22 08/26/22 08/26/22 Range/Units 06:13 11:52 16:29 RBC 4.34 L (4.40-5.60) X 10*6/uL MCV 98.8 H (80.0-97.0) fL MCHC 31.5 L (32.0-37.0) g/dL Lymphocytes # 0.71 L (0.90-5.00) X 10*3/uL Eosinophils # 0.01 L (0.04-0.35) X 10*3/uL POC Glucose (mg/dL) 255 H 494 H (70-110) mg/dL 08/26/22 08/27/22 Range/Units 20:11 05:49 RBC (4.40-5.60) X 10*6/uL MCV (80.0-97.0) fL MCHC (32.0-37.0) g/dL Lymphocytes # (0.90-5.00) X 10*3/uL Eosinophils # (0.04-0.35) X 10*3/uL POC Glucose (mg/dL) 248 H 120 H (70-110) mg/dL Microbiology - Last 24 Hours (Table) 08/25/22 00:00 Stool Culture - Preliminary Stool Cheri albicans 08/23/22 02:44 Blood Culture - Preliminary Blood 08/23/22 03:02 Blood Culture - Preliminary Blood
[2022-08-27 14:46] VITALS: BP 131/77; PULSE 68; RESP 19; TEMP 97.6
--- NOTE | 2022-08-27 15:16 | P.DS ---
Providers Date of admission: 08/23/22 02:53 Expected date of discharge: 08/27/22 Attending physician: Lucina Allen MD Consults: 08/23/22 02:51 Consult Physician Urgent Consulting Provider: Kishan Craft Consult Reason/Comments: Scrotal edema, perineum abscess Do you want consulting provider notified?: Yes, Notify in am 08/26/22 09:51 Consult Physician Routine Consulting Provider: Val Rosario Consult Reason/Comments: perineal abcess/infection Do you want consulting provider notified?: Yes Primary care physician: Tylor Smith [facility] Course: Discharge Diagnosis: Perirectal abscess. Patient is status post incision and drainage of perirectal abscess on Tuesday08/25/22. Patient received 3 days of IV Zosyn and evaluated by infectious disease specialist. Patient discharged home on Ceftin 500 mg twice daily and Flagyl 500 mg 3 times daily. 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 Persistent diarrhea. C. diff is negative. Episodes/frequency of diarrhea has improved. Left lower extremity cellulitis. Wound culture of left lower extremity positive for E. coli resistant to ampicillin, ciprofloxacin, Levaquin, tetracycline, and Bactrim. Patient received 3 days of IV Zosyn and evaluated by infectious disease specialist. Patient discharged home on Ceftin 500 mg twice daily and Flagyl 500 mg 3 times daily. Hypertension. Continue with home medication regimen plus and 25 mg daily and metoprolol 50 mg daily. Hyperlipidemia. Continue with daily medication regimen with simvastatin 20 mg daily. Peripheral vascular disease of bilateral lower extremities Hospital Course: Patient is a very pleasant 89-year-old male with a past medical history of hypertension, hyperlipidemia, peripheral vascular disease of bilateral lower extremities, and [id number] diabetes mellitus. He presented to the emergency department as a transfer from [facility] to be evaluated by urologist secondary to perineal abscess. Imaging was completed at [facility] which per documentation in chart showed no free gas in the area of the bed with no concerns of Bhavna's. Imaging reports are not available for review at this time. Disc was sent to radiology department to be uploaded for review. Patient reports he initially presented to [facility] secondary to diarrhea described as loose and mucousy. He denies having any melena or hematochezia. Patient was admitted under our services for evaluation of Perineal abscess with consultation to urology. Underwent evaluation by urologist, Dr. Dang recommending general surgery consult. Consult placed to general surgeon, Dr. Bauman whom took pt to OR for incision and drainage of Perirectal abscess on Tuesday08/25/22. Wound culture of left lower extremity positive for E. coli resistant to ampicillin, ciprofloxacin, Levaquin, tetracycline, and Bactrim. Patient received 3 days of IV Zosyn and evaluated by infectious disease specialist. Infectious disease physician in agreement for discharge home on oral antibiotics and follow up outpatient with his office in one week. Patient discharged home on Ceftin 500 mg twice daily and Flagyl 500 mg 3 times daily. Physical exam: Vital signs reviewed and stable. General: Nontoxic, no distress and appears stated age. Derm: Skin warm and dry, normal coloration for ethnicity. Head: Atraumatic, normocephalic and symmetric. Eyes: EOMs intact, no lid lag, and anicteric sclera. Mouth: no lip lesions, mucus membranes moist. Cardiovascular: regular rate and rhythm with normal S1S2, systolic murmur, positive posterior tibial pulses bilaterally, and cap refill < 2 seconds. Lungs: Respirations even, regular, and unlabored on room air. Lungs CTA bilaterally, no rhonchi, no rales, no wheezing, and no accessory muscle usage. Abdominal: Obese distended abdomen, nontender to palpation, no guarding, no appreciable organomegaly. Ext: ROM intact. No gross muscle atrophy, no contractures. Bilateral lower extremity venous discoloration and swelling. Left tavares with small area of sloughing, increased redness and warmth. Neuro: Speech clear, face symmetrical and CN II-XII grossly intact with no noted focal neuro deficits Psych: Alert and oriented to person, place, time, and situation. Appropriate and pleasant affect. A total of 33 minutes of time were spent preparing this complex discharge summary. Pt was discharged on 08/27/22 at 2:34 PM Patient was seen independently by Nurse Practitioner. This document was prepared using [employer] dictation software. Please allow for errors in box repairer while rare they do occur. I reviewed the documentation as provided by the KAYLA above, who is the original author of this note. I agree with the documented assessment and plan, with the following changes: none Patient Condition at Discharge: Stable Plan - Discharge Summary Discharge Rx Participant: No New Discharge Prescriptions: New cefUROXime axetiL [Ceftin] 500 mg PO BID 10 Days #20 tab metroNIDAZOLE [Flagyl] 500 mg PO TID #30 tab Continue Losartan [Cozaar] 25 mg PO DAILY Dulaglutide [Trulicity] 3 mg SQ Q7D glipiZIDE XL [Glucotrol XL] 20 mg PO DAILY Metoprolol Succinate (ER) [Toprol XL] 50 mg PO DAILY Simvastatin [Zocor] 20 mg PO DAILY Multivit-Min/FA/Lycopen/Lutein [Centrum Silver Men Tablet] 1 tab PO DAILY Discharge Medication List Losartan [Cozaar] 25 mg PO DAILY 08/05/21 [History] Metoprolol Succinate (ER) [Toprol XL] 50 mg PO DAILY 08/05/21 [History] Simvastatin [Zocor] 20 mg PO DAILY 08/05/21 [History] Dulaglutide [Trulicity] 3 mg SQ Q7D 08/23/22 [History] Multivit-Min/FA/Lycopen/Lutein [Centrum Silver Men Tablet] 1 tab PO DAILY 08/23/22 [History] glipiZIDE XL [Glucotrol XL] 20 mg PO DAILY 08/23/22 [History] cefUROXime axetiL [Ceftin] 500 mg PO BID 10 Days #20 tab 08/27/22 [Rx] metroNIDAZOLE [Flagyl] 500 mg PO TID #30 tab 08/27/22 [Rx] Follow up Appointment(s)/Referral(s): Tylor Smith MD [Primary Care Provider] - 1-2 days Home Health,[facility] [NON-STAFF] - 1 Week ([facility] will call you to arrange a visit) Val Rosario MD [STAFF PHYSICIAN] - 1 Week Jacques Bauman MD [STAFF PHYSICIAN] - 1 Week Activity/Diet/Wound Care/Special Instructions: Activity: As tolerated. Take breaks as needed. Diet: Heart healthy and carb consistent diet. Avoid salts, or foods with hidden salts such as canned or boxed foods and frozen dinners. Extra salt makes your heart work harder and traps the fluid in your body for longer. Special Instructions: Take all of your medications as directed and remember to keep all of your doctor's appointments and follow-up as needed. Thank you for allowing us to participate in your care, it was truly a pleasure having you for our patient!!! Discharge Disposition: HOME SELF-CARE
--- NOTE | 2022-08-27 15:25 | P.PN ---
Subjective Progress Note Date: 08/27/22 Principal diagnosis: Perianal abscess Patient is a 89-year-old male presenting to the hospital as a transfer from outside facility for evaluation of perineal pain swelling and redness concerning for abscess status post surgical drainage. On today's evaluation that is 08/27/2022, the patient denies having any fever or any chills, the patient is breathing comfortably no chest pain or shortness with a cough no abdominal pain patient denies having any pain to his perineal area and she is feeling better and has been insisting on going home Objective - Vital Signs Vital signs: Vital Signs Temp 97.9 F 08/27/22 07:10 Pulse 67 08/27/22 07:10 Resp 19 08/27/22 07:10 BP 133/77 08/27/22 07:10 Pulse Ox 93 L 08/27/22 07:34 FiO2 Intake & Output 08/26/22 08/27/22 08/27/22 18:59 06:59 18:59 Output Total 100 Balance -100 Output: Urine 100 Other: Voiding Method Urinal Urinal # Voids 4 1 # Bowel Movements 1 - Exam GENERAL DESCRIPTION: An elderly male lying in bed in no distress RESPIRATORY SYSTEM: Unlabored breathing , decreased breath sounds at bases HEART: S1 S2 regular rate and rhythm , ABDOMEN: Soft , no tenderness, perianal area wound post surgical drainage with no surrounding redness induration or foul-smelling drainage EXTREMITIES: No edema feet - Labs CBC & Chem 7: 08/26/22 06:13 08/26/22 06:13 Labs: Abnormal Lab Results - Last 24 Hours (Table) 08/26/22 08/26/22 08/27/22 Range/Units 16:29 20:11 05:49 POC Glucose (mg/dL) 494 H 248 H 120 H (70-110) mg/dL 08/27/22 Range/Units 11:24 POC Glucose (mg/dL) 199 H (70-110) mg/dL Microbiology - Last 24 Hours (Table) 08/23/22 02:44 Blood Culture - Preliminary Blood 08/23/22 03:02 Blood Culture - Preliminary Blood 08/25/22 00:00 Stool Culture - Preliminary Stool Cheri albicans Assessment and Plan (1) Perineal abscess Current Visit: Yes Status: Acute Code(s): L02.215 - CUTANEOUS ABSCESS OF PERINEUM SNOMED Code(s): 48767833 Plan: 1patient was in the hospital with perirectal abscess in this patient status post surgical drainage on 08/25/2022 with a deep cultures currently pending patient initial cultures that was taken from the left leg grew E. coli with intermediate sensitivity to Unasyn 2- patient has been advised to stay in the hospital while waiting for the perineal cultures to be finalize however the patient has been insisting on going home, prescription for oral Ceftin and Flagyl has been sent to the pharmacy and close patient follow-up discussed with the STATISTICAL SECRETARY for admitting team working on discharge Time with Patient: Less than 30
== END 2022-08-27 18:50 | disposition home or self-care (01) | DRG 345 ==
LOC: EC 02:10 → 4SSUR 02:53
PROVIDERS: ADMIT Internal Medicine; ATTEND Internal Medicine
PROC: 0D9P0ZZ Drainage of Rectum, Open Approach (ICD-10-PCS; principal; 2022-08-25 11:50)
DX: K61.1 Rectal abscess (principal); K92.2 Gastrointestinal hemorrhage, unspecified; L02.215 Cutaneous abscess of perineum; L03.116 Cellulitis of left lower limb; Z16.11 Resistance to penicillins; E11.51 Type 2 diabetes mellitus with diabetic peripheral angiopathy without gangrene; E11.22 Type 2 diabetes mellitus with diabetic chronic kidney disease; E11.622 Type 2 diabetes mellitus with other skin ulcer; E11.65 Type 2 diabetes mellitus with hyperglycemia; Z79.84 Long term (current) use of oral hypoglycemic drugs; E78.5 Hyperlipidemia, unspecified; R19.7 Diarrhea, unspecified; I12.9 Hypertensive chronic kidney disease with stage 1 through stage 4 chronic kidney disease, or unspecified chronic kidney disease; L98.412 Non-pressure chronic ulcer of buttock with fat layer exposed; L98.499 Non-pressure chronic ulcer of skin of other sites with unspecified severity; N18.30 Chronic kidney disease, stage 3 unspecified; N39.41 Urge incontinence; N50.89 Other specified disorders of the male genital organs; B96.20 Unspecified Escherichia coli [E. coli] as the cause of diseases classified elsewhere; Z79.4 Long term (current) use of insulin; Z79.899 Other long term (current) drug therapy; Z88.2 Allergy status to sulfonamides
CPT/HCPCS: 36415; 80048; 80053; 80202; 83036; 83735; 85025; 87040; 87045; 87046; 87070; 87077; 87186; 87205; 87324; 94760; 99285